=== PATIENT | male | born 1975 | race Caucasian/White ===

== ENCOUNTER 2024-07-02 14:12 | Outpatient (AMB) | payer MEDICARE, OTHER, SELFPAY ==
--- NOTE | 2024-07-02 14:21 | A.OFFVIS_ITS ---
Vital Signs 07/02/24 14:22 Weight 242 lb 15.19 oz BP 110/72 Blood Pressure Location Lt brachial Position Standing Pulse 79 Pulse Source Pulse Oximeter Intake Visit Reasons: Sarcoidosis//RECORDS RECEIVED Intake Note: Patient present today for Sarcoidosis office visit. High Man Required: No Accompanied by: Spouse Allergies No Known Allergies Allergy (Verified 07/02/24 14:26) HPI Comments Details: He had 2 incidents of swelling left dorsal hand lasting 1-2 weeks. Last episode occured last month then 6 months ago. Skin was yellow. Denies erythem, pain or warmth. He felt that his hand was tight. Self-limited. Left groin pain with walking. Intermittent. Self-limited. He has been experiencing pain in bilateral hips lateral sides. Last cortisone injection 02/2024. Left shoulder pain for years with limited abduction above 90 degrees. He has shooting pain that radiates from shoulder to deltoid when he abducts shoulder. He is going to PT for neck pain with c-spine impingement. PT at [facility] has given him shoulder exercises recently. [facility] Surgical History (Updated 07/02/24 @ 14:28 by LEE Rosa) History of hip surgery History of back surgery Family History (Updated 07/02/24 @ 14:29 by LEE Rosa) Mother No problems noted. Father No problems noted. Social History (Updated 07/02/24 @ 14:28 by LEE Rosa) Alcohol intake: never Patient Tobacco Use Status: Never used Tobacco Review of Systems Const All systems reviewed & are unremarkable except as noted in HPI and below Physical Exam Vital Signs: Last Vital Signs Pulse 79 07/02/24 14:22 BP 110/72 07/02/24 14:22 Const General: healthy appearing and comfortable Extrem Other: mild soft tissue swelling distal to left wrist on dorsal hand without discoloration or warmth. Slight tenderness on palpation DIPs tender. heberden's nodes present. No synovitis of small joints. Left shoulder is nontender. Pain with abduction of left shoulder above 100 degrees. Good internal and external rotations of shoulders. Right shoulder abduction 120 degrees without pain. Nontender groin region of left hip. Limited full external rotation of left hip. Trochanteric bursa tenderness was found. Office Procedures AMB Joint Injection/Aspiration Joint Injection/Aspiration Details: Bilateral trochanteric bursas Prep: site was prepped using aseptic technique Injected: 40 mg of, Kenalog, with 1 mL of and 1% plain lidocaine Procedure: The patient tolerated the procedure well Coding 42307 - Large joint Additional procedure code (CPT) needed (Modifier needed) Office Meds Kenalog 40 mg/mL suspension for injection Performing Provider: Sunil Hua MD Performing Location: [facility] Administered by: Sunil Hua MD on 07/02/24 15:37 Dose Route Admin Location Dispensed Lot Number Expiration Date [facility] [employer] 40 mg intrabursal right trochanteric bursa 1 mL [id number] [employer] 40 mg intrabursal left trochanteric bursa 1 mL lidocaine (PF) 10 mg/mL (1 %) injection solution Performing Provider: Sunil Hua MD Performing Location: [facility] Administered by: Sunil Hua MD on 07/02/24 15:37 Dose Route Admin Location Dispensed Lot Number Expiration Date [facility] [employer] 20 mg Infiltration 2 mL [id number] [facility] Assessment & Plan Assessment & Plan (1) Trochanteric bursitis of both hips: Comment: Uncontrolled pain. Code(s): M70.61 - Trochanteric bursitis, right hip; M70.62 - Trochanteric bursitis, left hip Category: Medical Plan: Bilateral trochanteric bursa injections were given (2) Hip pain, left: Comment: Intermittent groin pain. Code(s): M25.552 - Pain in left hip Category: Medical Plan: Will evaluate for hip joint pathology with x-ray. (3) Shoulder pain, left: Comment: Uncontrolled pain with shoulder abduction with limited full ROM. Code(s): M25.512 - Pain in left shoulder Category: Medical Plan: Continue PT exercises to improve ROM. Patient will call office if he needs formal PT orders for PSSP. Xray left shoulder ordered to evaluate for shoulder joint pathology (4) Left hand pain: Comment: 2 episodes of acute left dorsal hand swelling. Unclear etiology. Residual swelling present Code(s): M79.642 - Pain in left hand Category: Medical Plan: x-ray left hand ordered (5) Erosive osteoarthritis of both hands: Comment: Pain is uncontrolled in DIPs. He had x-ray bilateral hands ordered by his [facility] physicians that we reviewed on patient's phone. Discussed natural course of erosive OA and management Code(s): M15.4 - Erosive (osteo)arthritis Category: Medical Plan: He will try diclofenac gel 1% applied to affected region TID or QID for a month. If no improvement he will then try topical lidocaine OTC or capsaicin cream. encouraged continue hand exercises to maintain ROM Continue paraffin wax bath Orders: Orders XR hand LT 2V Today M15.4 - Erosive (osteo)arthritis, M79.642 - Pain in left hand XR hip LT min 2V Today M25.552 - Pain in left hip AMB Joint Injection/Aspiration Today M70.61 - Trochanteric bursitis, right hip, M70.62 - Trochanteric bursitis, left hip XR shoulder LT min 2V Today M25.512 - Pain in left shoulder Medications: New diclofenac sodium 1% (Arthritis Pain (diclofenac)) apply to hand includes palm/fingers/back of hand every 4-6 hours as needed 2 grams topical QID 100 grams 11RF M15.4 - Erosive (osteo)arthritis Coding Level of Care Code Est Pt Level 5 (44102) Complex EM visit Add On G2211 Diagnoses Trochanteric bursitis of both hips M70.61; M70.62 Hip pain, left M25.552 Shoulder pain, left M25.512 Left hand pain M79.642 Erosive osteoarthritis of both hands M15.4 CPT Codes Coding - 65856 Large joint: 15778 - Large joint ([id number]) Time Spent (min) 40
[2024-07-02 14:22] VITALS: BP 110/72; PULSE 79
== END 2024-07-02 15:32 | disposition home or self-care (01) ==
PROVIDERS: PCP Internal Medicine; Visit Provider Internal Medicine Rheumatology
DX: M70.61 Trochanteric bursitis, right hip (principal); M70.62 Trochanteric bursitis, left hip; M25.552 Pain in left hip; M25.512 Pain in left shoulder; M79.642 Pain in left hand; M15.4 Erosive (osteo)arthritis
CPT/HCPCS: 20610; 99214

== ENCOUNTER 2024-07-02 14:12 | Outpatient (REF) | payer MEDICARE, OTHER, SELFPAY ==
--- NOTE | ~2024-07-02 | XR_ITS ---
EXAMINATION: XR SHOULDER, LEFT. XR HAND, LEFT. XR HIP, LEFT. CLINICAL INFORMATION: Left shoulder and left hip pain. Dorsal wrist and hand swelling COMPARISON: None. TECHNIQUE: 4 views of the left shoulder. AP and frog-lateral views of the left hip. 3 views of the left hand. FINDINGS: Left shoulder: No acute fracture or malalignment. Supraspinatus calcific tendinitis. Mild acromioclavicular osteoarthritis. Left hip: 3 cannulated screws traverse a presumed healed femoral neck fracture. There is chronic remodeling/deformity of the femoral head with bony protuberance/osteophyte at the lateral femoral head and neck junction, superolateral joint space narrowing and small marginal osteophyte of the superior acetabular rim. No acute abnormality. 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 Narrowing of the remainder of the interphalangeal joints. No active erosion or suspicious soft tissue calcification. No acute fracture or malalignment. XR/XR hip LT min 2V IMPRESSION: LEFT SHOULDER: Supraspinatus calcific tendinitis. Mild acromioclavicular osteoarthritis. LEFT HIP: No acute abnormality. Chronic deformity of the left hip with mild degenerative changes as described. 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 No acute abnormality. Electronically signed by: Iftikhar Cunha MD 07/02/2024 06:31 PM [facility]
--- NOTE | ~2024-07-02 | XR_ITS ---
EXAMINATION: XR SHOULDER, LEFT. XR HAND, LEFT. XR HIP, LEFT. CLINICAL INFORMATION: Left shoulder and left hip pain. Dorsal wrist and hand swelling COMPARISON: None. TECHNIQUE: 4 views of the left shoulder. AP and frog-lateral views of the left hip. 3 views of the left hand. FINDINGS: Left shoulder: No acute fracture or malalignment. Supraspinatus calcific tendinitis. Mild acromioclavicular osteoarthritis. Left hip: 3 cannulated screws traverse a presumed healed femoral neck fracture. There is chronic remodeling/deformity of the femoral head with bony protuberance/osteophyte at the lateral femoral head and neck junction, superolateral joint space narrowing and small marginal osteophyte of the superior acetabular rim. No acute abnormality. 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 Narrowing of the remainder of the interphalangeal joints. No active erosion or suspicious soft tissue calcification. No acute fracture or malalignment. XR/XR hand LT 2V IMPRESSION: LEFT SHOULDER: Supraspinatus calcific tendinitis. Mild acromioclavicular osteoarthritis. LEFT HIP: No acute abnormality. Chronic deformity of the left hip with mild degenerative changes as described. 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 No acute abnormality. Electronically signed by: Iftikhar Cunha MD 07/02/2024 06:31 PM [facility]
--- NOTE | ~2024-07-02 | XR_ITS ---
EXAMINATION: XR SHOULDER, LEFT. XR HAND, LEFT. XR HIP, LEFT. CLINICAL INFORMATION: Left shoulder and left hip pain. Dorsal wrist and hand swelling COMPARISON: None. TECHNIQUE: 4 views of the left shoulder. AP and frog-lateral views of the left hip. 3 views of the left hand. FINDINGS: Left shoulder: No acute fracture or malalignment. Supraspinatus calcific tendinitis. Mild acromioclavicular osteoarthritis. Left hip: 3 cannulated screws traverse a presumed healed femoral neck fracture. There is chronic remodeling/deformity of the femoral head with bony protuberance/osteophyte at the lateral femoral head and neck junction, superolateral joint space narrowing and small marginal osteophyte of the superior acetabular rim. No acute abnormality. 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 Narrowing of the remainder of the interphalangeal joints. No active erosion or suspicious soft tissue calcification. No acute fracture or malalignment. XR/XR shoulder LT min 2V IMPRESSION: LEFT SHOULDER: Supraspinatus calcific tendinitis. Mild acromioclavicular osteoarthritis. LEFT HIP: No acute abnormality. Chronic deformity of the left hip with mild degenerative changes as described. 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 No acute abnormality. Electronically signed by: Iftikhar Cunha MD 07/02/2024 06:31 PM [facility]
== END 2024-07-02 14:13 | disposition home or self-care (01) ==
LOC: HO.XRAY 14:12
PROVIDERS: PCP Internal Medicine; Visit Provider Internal Medicine Rheumatology
DX: M15.4 Erosive (osteo)arthritis (principal); M79.642 Pain in left hand; M25.552 Pain in left hip; M25.512 Pain in left shoulder; M70.61 Trochanteric bursitis, right hip; M70.62 Trochanteric bursitis, left hip
CPT/HCPCS: 20610; 73030; 73120; 73502; 99212; J2003; J3300

== ENCOUNTER 2024-10-01 13:02 | Outpatient (AMB) | payer MEDICARE, OTHER, SELFPAY ==
--- OUTSIDE RECORDS SUMMARY | 2024-10-01 13:10 | XMS_ITS | Continuity of Care Document ---
Author Organization [facility] Address [address] [place] [id number]- Care Team Providers Care Pin Setter Name Role Phone Kate HARVEY, Lashonda Primary Care Physician Encounter [facility] Date(s): 08/05/24 - 09/04/24 [facility] [address] [place] [id number]- Encounter Type: Triage Allergies, Adverse Reactions, Alerts Substance Criticality Severity Reaction Reaction Severity Status Adhesive Bandage paper thin sensitive skin Active Immunizations Given and Recorded Vaccine Date Status Refusal Reason influenza virus vaccine, inactivated 04/08/24 Marty rded influenza virus vaccine, inactivated 04/07/23 Marty rded influenza virus vaccine, inactivated 05/19/22 Marty rded influenza virus vaccine, inactivated 04/16/21 Marty rded influenza virus vaccine, inactivated 06/11/19 Marty rded influenza virus vaccine, inactivated 1 06/09/18 Gi tray influenza virus vaccine, inactivated 05/31/17 Marty rded influenza virus vaccine, inactivated 2 06/10/16 Gi tray influenza virus vaccine, inactivated 07/13/15 Give n influenza virus vaccine, inactivated 06/08/14 Give n influenza virus vaccine, inactivated 05/26/10 Give n influenza virus vaccine, inactivated 07/24/07 Give n tetanus/diphtheria/pertussis, acel(Tdap) 3 03/24/24 Given tetanus/diphtheria/pertussis, acel(Tdap) 05/18/11 Given SARS-CoV-2 (COVID-19) mRNA BNT-162b2 vac 08/17/21 Recorded SARS-CoV-2 (COVID-19) mRNA BNT-162b2 vac 11/18/20 Recorded SARS-CoV-2 (COVID-19) mRNA BNT-162b2 vac 10/26/20 Recorded Influenza Virus Vaccine (oldterm) 05/01/20 Recorde d pneumococcal 23-valent vaccine 07/13/15 Given Influenza Vaccine (oldterm) 06/15/09 Given 1Result Comment: [06/09/2018] 74207-329-34 2Admin Note: [facility] 3Result Comment: [facility] [id number] Medications Ativan 1 mg oral tablet 1 tablet = 1 mg, By Mouth, Daily at bedtime, PRN as needed for anxiety, cottage master checked, # 28 tablet, 0Refills, Maintenance, 03/25/24 4:38:00 PM EDT, Tablet, [facility]/pharmacy #[id number], 183, cm, 03/24/24 15:46:00EDT, Height, 109.2, kg, 03/20/24 10:08:00 EDT, Dry Weight Start Date: 03/25/24 Status: Ordered Quantity: 28.0 Unit: tablet Repeat number: 1 atorvastatin 20 mg oral tablet 1 tablet, By Mouth, Daily, # 90 tablet, 1 Refills, Maintenance, 08/24/24 1:22:00 PM EST, [id number], 183, cm, 08/07/24 18:58:00 EST, Height, 110.2, kg, 08/07/24 10:15:00 EST, Dry Weight Start Date: 08/24/24 Status: Ordered Quantity: 90.0 Unit: tablet Repeat number: 1 Canasa Pac 1000 mg rectal suppository 1 supp = 1,000 mg, Rectally, Daily at bedtime, 0 Refills, Maintenance, 04/06/16 1:04:48 PM EDT Start Date: 04/06/16 Status: Ordered Repeat number: 1 folic acid 1 mg oral tablet 1, tablet, By Mouth, Daily, # 90 tablet, Refills 11, Tot. Refills 11, Maintenance, 12/09/23 9:51:00 AM EDT, Route to Pharmacy Electronically, [facility]/pharmacy #[id number], 183, cm, 11/28/23 8:35:00 EDT, Height,107.5, kg, 11/29/23 11:09:00 EDT, Dry Weight Start Date: 12/09/23 Status: Ordered Quantity: 90.0 Unit: tablet Repeat number: 12 ipratropium nasal 21 mcg/inh spray See Instructions, USE 1 SPRAY IN BOTH NOSTRILS DAILY AT BEDTIME,CAN BE USED UP TO 3 TIMES PER DAY IF NEEDED, # 90 Unknown, 5 Refills, Maintenance, 03/19/24 10:16:00 AM EDT, [facility]/pharmacy #[id number], 90, USE 1 SPRAY IN BOTH NOSTRILS DAILY AT BEDTIME,CAN BE USED UP TO 3 TIMES PER DAY IF NEEDED, 183, cm, 02/21/24 17:54:00 EDT, Height, 108.1, kg, 02/21/24 16:19:00 EDT, Dry Weight Start Date: 03/19/24 Status: Ordered Quantity: 90.0 Unit: Unknown Repeat number: 6 lidocaine 0.5% topical gel 1 application, Topically, 3 times a day, # 120 Gm, 0 Refills, Maintenance, 07/29/24 4:10:00 PM EST,Gel, Partial fill upon patient request if the prescription is for a schedule II opioid drug. Start Date: 07/29/24 Status: Ordered Quantity: 120.0 Unit: g Repeat number: 1 methotrexate 2.5 mg oral tablet TAKE 8 TABLETS BY MOUTH ONE TIME PER WEEK Start Date: 07/22/20 Status: Ordered Repeat number: 1 metoclopramide 10 mg oral tablet, disintegrating 1 tablet = 10 mg, By Mouth, 3 times a day, PRN Headache, # 90 tablet, 0 Refills, Maintenance, 12/29/21 1:49:00 PM EDT, DIS Tablet, Partial fill upon patient request if the prescription is for a schedule II opioid drug. Start Date: 12/29/21 Status: Ordered Quantity: 90.0 Unit: tablet Repeat number: 1 Metoprolol Succinate ER 25 mg oral tablet, extended release 1 tablet, By Mouth, Daily, # 90 tablet, 1 Refills, Maintenance, 04/29/24 10:47:00 AM EDT, [facility]/pharmacy #[id number], 183, cm, 04/17/24 15:06:00 EDT, Height, 108.5, kg, 04/17/24 10:21:00 EDT, Dry Weight Start Date: 04/29/24 Status: Ordered Quantity: 90.0 Unit: tablet Repeat number: 2 modafinil 200 mg oral tablet 2 tablet = 400 mg, By Mouth, Daily in AM, # 30 tablet, 0 Refills, Maintenance, 03/22/23 2:27:00 PM EDT, Tablet, Partial fill upon patient request if the prescription is for a schedule II opioid drug. Start Date: 03/22/23 Status: Ordered Quantity: 30.0 Unit: tablet Repeat number: 1 Renflexis 100 mg intravenous injection = 500 mg, IV Infusion, Every 28 days, # 5 each, 11 Refills, Maintenance, 04/13/24 5:31:00 PM EDT, dx: sarcoid D86. 0 Start Date: 04/13/24 Status: Ordered Quantity: 5.0 Unit: each Repeat number: 12 SUMAtriptan 50 mg oral tablet 2 tablet = 100 mg, By Mouth, Once, PRN Pain , Mild, TAKE 1 TABLET BY MOUTH EVERY 2 HOURS NEEDED FOR MIGRAINE (NO MORE THAN 4 A WEEK) Start Date: 07/22/20 Status: Ordered Repeat number: 1 tiZANidine 2 mg oral tablet 2 mg, 1, tablet, By Mouth, Every 8 hours, PRN, # 42 tablet, Refills 0, Tot. Refills 0, Maintenance,as needed for muscle spasm, 12/12/23 12:59:00 PM EDT, Route to Pharmacy Electronically, [facility], Partial fill upon patient request if the prescription is for a schedule II opioid drug., 180.34, cm, 12/12/23 9:11:00 EDT, Height, 108, kg, 12/12/23 9:11:00 EDT, Dry Weight Start Date: 12/12/23 Stop Date: 12/26/23 Status: Ordered Quantity: 42.0 Unit: tablet Repeat number: 1 Tylenol 8 HR Arthritis Pain 650 mg oral tablet, extended release 2 tablet = 1,300 mg, By Mouth, Every 8 hours, 0 Refills, Maintenance, 07/29/24 4:24:00 PM EST, Partial fill upon patient request if the prescription is for a schedule II opioid drug. Start Date: 07/29/24 Status: Ordered Repeat number: 1 venlafaxine 37.5 mg oral capsule, extended release 37.5 mg, 1, capsule, By Mouth, Daily, add to Venlafaxine 75 mg, # 90 capsule, Refills 2, Tot. Refills 2, Maintenance, 03/24/24 4:17:00 PM EDT, Route to Pharmacy Electronically, [facility]/pharmacy #[id number], Partial fill upon patient request if the prescription is for a schedule II opioid drug., 183, cm, 03/24/24 15:46:00 EDT, Height, 109.2, kg, 03/20/24 10:08:00 EDT, Dry Weight Start Date: 03/24/24 Status: Ordered Quantity: 90.0 Unit: capsule Repeat number: 3 Indication: Major depressive disorder, single episode, moderate venlafaxine 75 mg oral capsule, extended release 1 capsule, By Mouth, Daily, add to Venlafaxine 37.5 mg, # 90 capsule, 2 Refills, Maintenance, 03/24/24 4:17:00 PM EDT, [facility]/pharmacy #[id number], 183, cm, 03/24/24 15:46:00 EDT, Height, 109.2, kg, 03/20/24 10:08:00 EDT, Dry Weight Start Date: 03/24/24 Status: Ordered Quantity: 90.0 Unit: capsule Repeat number: 3 Viagra 100 mg oral tablet 1 tablet = 100 mg, By Mouth, Daily, PRN as needed for erectile dysfunction, # 30 tablet, 5 Refills,Maintenance, 09/04/23 12:18:00 PM EST, Tablet, [facility]/pharmacy #[id number], Partial fill upon patient requestif the prescription is for a schedule II opioid drug., 180.1, cm, 09/04/23 11:32:00 EST, Height, 102, kg, 08/09/23 11:18:00 EST, Dry Weight Start Date: 09/04/23 Status: Ordered Quantity: 30.0 Unit: tablet Repeat number: 6 Indication: Male erectile dysfunction, unspecified Vitamin D2 50,000 intl units (1.25 mg) oral capsule 1 capsule = 50,000 International_Units, By Mouth, Every week, # 12 capsule, 0 Refills, Maintenance,05/22/24 4:53:00 PM EDT, Capsule, [facility]/pharmacy #[id number], Partial fill upon patient request if the prescription is for a schedule II opioid drug., 183, cm, 04/17/24 15:06:00 EDT, Height, 107.4, kg, 05/15/24 10:58:00 EDT, Dry Weight Start Date: 05/22/24 Status: Ordered Quantity: 12.0 Unit: capsule Repeat number: 1 Problem List Condition Confirmation Course Effective Dates Status Health Status Informant Anxiety disorder Confirmed Active Degenerative arthritis of cervical spine Confirmed Active Ulcerative proctitis Confirmed Active Erosive (osteo)arthritis Confirmed Active Hypercholesterolemia Confirmed Active Hyperhidrosis of axilla Confirmed Active HTN (hypertension) Confirmed Active Interstitial lung disease Confirmed Active Lumbar radiculopathy Confirmed Active Migraines Confirmed Active Depression Confirmed Active Obese class I Confirmed Active EDDI (obstructive sleep apnea) Confirmed Active Osteoarthritis of multiple joints Confirmed Active Post-nasal drip Confirmed Active Restless legs Confirmed Active Sarcoidosis Confirmed Active Social History Social History Type Response Smoking Status Never (less than 100 in lifetime) entered on: 11/28/23 Sex Sex Representation Male (finding) Patient Care team information Care Team Personnel Name: Marah Reyes RN [facility] RN Member Role: Primary Care Nurse Name: Lashonda Love MD Position[facility] Physician - Primary Care Member Role: PCP Address: [address] [place] [id number] Telecom: Name: Gala Pat RN [facility] AMB Nurse Member Role: Primary Care Nurse Name: Paco Carlos RN [facility] RN Member Role: Primary Care Nurse Name: Deana Garcia Position[facility] Rad Management Member Role: Primary Care Nurse Care Team Related Persons Name: CHELLE ORTIZ Insurance Providers Guarantor name: AISHA ORTIZ Health Plan Information #: 1 Payer: MEDICARE PART B OUTPT Member Number: NA Policy Number: NA Group Number: NA Health Plan Information #: 2 Payer: [facility] SHAR[facility] SV Member Number: NA Policy Number: NA Group Number: NA
--- OUTSIDE RECORDS SUMMARY | 2024-10-01 13:10 | XMS_ITS | Clinical Summary ---
Author Organization [facility] [address] [facility] Address [address] [place] [address] Phone Care Team Providers Care Transformation Coach Name Role Phone Lashonda Love MD Primary Care Provider Social History Tobacco Use Types Packs/Day Years Used Date Smoking Tobacco: Never Assessed Sex and Gender Information Value Date Recorded Sex Assigned at Not on file Legal Sex Male 10:40 AM EST Gender Identity Not on file Sexual Orientation Not on file Plan of Treatment Upcoming Encounters Date Type Department Care Team (Late st Contact Info) Description 11/13/2024 2:40 PM EDT Office Visit Gastroenterology - [address] [phone] Jhonny Vicente MD [address] [address] Health Maintenance Due Date Last Done Comments DTaP,Tdap,and Td Vaccines (1 - Tdap) 1996 Hepatitis B Vaccines (1 of 3 - 19+ 3-dose series) 1996 COVID-19 Vaccine ( - 2023-2 5 season) 2024 Influenza Vaccine (#1) 2024 Cholesterol Screening (Lipid Panel) 09/17/2024 Colorectal Cancer Screening: Colonoscopy 09/17/2024 Depression Screening 09/17/2024 HIV Screening 09/17/2024 Hepatitis C Screening 09/17/2024 Medicare Annual Wellness Visit 09/17/2024 Social Influencers of Health Screening 09/17/2024 HIB Vaccines Aged Out No longer eligi ble based on patient's age to complete this topic HPV Vaccines Aged Out No longer eligi ble based on patient's age to complete this topic Hepatitis A Vaccines Aged Out No long er eligible based on patient's age to complete this topic IPV Vaccines Aged Out No longer eligi ble based on patient's age to complete this topic MMR Vaccines Aged Out No longer eligi ble based on patient's age to complete this topic Meningococcal ACWY Vaccine Aged Out N o longer eligible based on patient's age to complete this topic Meningococcal B Vacine Aged Out No lo nger eligible based on patient's age to complete this topic Pneumococcal Vaccine: Pediat rics (0 to 5 Years) and At-Risk Patients (6 to 64 Years) Aged Out No longer eligible b ased on patient's age to complete this topic RSV Immunization Patients Un bert 20 months Aged Out No longer eligible b ased on patient's age to complete this topic Varicella Vaccines Aged Out No longer eligible based on patient's age to complete this topic Insurance [facility] MEDICARE Care Teams Transformation Coach Relationship Specialty Start Date End Date Lashonda Love MD [address] [place] [phone] PCP - General Internal Medicine 09/17/24
--- OUTSIDE RECORDS SUMMARY | 2024-10-01 13:10 | XMS_ITS | Continuity of Care Document ---
Author Organization [facility] Adult Address [address] [place] [id number]- Care Team Providers Care Clinical Psychologist Private Practice Name Role Phone Kate HARVEY, Lashonda Primary Care Physician Encounter [facility] Date(s): 08/24/24 - 09/23/[address] [address]- Encounter Type: Triage Allergies, Adverse Reactions, Alerts [...] Vaccine (oldterm) 06/15/09 Given 1Result Comment: [06/09/2018] [id number] 2Admin Note: [facility] 3Result Comment: [facility] [id number] Problem List Condition Confirmation Course Effective Dates Status Health Status Informant Anxiety disorder Confirmed Active Degenerative arthritis of cervical spine Confirmed Active Ulcerative proctitis Confirmed Active ED (erectile dysfunction) Confirmed Active Erosive (osteo)arthritis Confirmed Active Hypercholesterolemia Confirmed Active Hyperhidrosis of axilla Confirmed Active HTN (hypertension) Confirmed Active Mild cognitive impairment Confirmed Active Interstitial lung disease Confirmed Active Lumbar radiculopathy Confirmed Active Migraines Confirmed Active Depression Confirmed Active Obese class I Confirmed Active EDDI (obstructive sleep apnea) Confirmed Active Osteoarthritis of multiple joints Confirmed Active Post-nasal drip Confirmed Active Restless legs Confirmed Active Sarcoidosis Confirmed Active Social History Social History Type Response Smoking Status Former smoker, quit more than 30 days ago; Type: Cigarettes; Number of years: 10; entered on: 07/22/20 Sex Sex Representation Male (finding) Patient Care team information Care Team Personnel Name: Marah Reyes RN Position: [facility] RN Member Role: Primary Care Nurse Name: Lashonda Love MD Position: [facility] Physician - Primary Care Member Role: PCP Address: [address] [place] [address] Telecom: Name: Gala Pat RN Position: [facility] AMB Nurse Member Role: Primary Care Nurse Name: Paco Carlos RN Position: [facility] RN Member Role: Primary Care Nurse Name: Deana Garcia Position: [facility] Rad Management Member Role: Primary Care Nurse Care Team Related Persons Name: CHELLE ORTIZ Insurance Providers Guarantor name: AISHA LACIJIMBO Health Plan Information #: 1 Payer: MEDICARE PART B OUTPT Member Number: NA Policy Number: NA Group Number: NA Health Plan Information #: 2 Payer: [facility] Member Number: NA Policy Number: NA Group Number: NA
--- OUTSIDE RECORDS SUMMARY | 2024-10-01 13:10 | XMS_ITS | Continuity of Care Document ---
Author Organization [facility] Address [address] [place] [address]- Care Team Providers Care Instructional Support Specialist Name Role Phone Kate HARVEY, Lashonda Primary Care Physician Encounter [facility] Date(s): 09/16/24 - 09/23/[address] [address]- Encounter Diagnosis Well adult exam(Discharge Diagnosis) - 09/16/24 Ulcerative proctitis(Discharge Diagnosis) - 09/16/24 Interstitial lung disease(Discharge Diagnosis) - 09/16/24 Depression(Discharge Diagnosis) - 09/16/24 HTN (hypertension)(Discharge Diagnosis) - 09/16/24 Hypercholesterolemia(Discharge Diagnosis) - 09/16/24 EDDI (obstructive sleep apnea)(Discharge Diagnosis) - 09/16/24 Obese class I(Discharge Diagnosis) - 09/16/24 Mild cognitive impairment(Discharge Diagnosis) - 09/16/24 Anxiety disorder(Discharge Diagnosis) - 09/16/24 ED (erectile dysfunction)(Discharge Diagnosis) - 09/16/24 Attending Physician: Lashonda Love MD Encounter Type: Office Visit Allergies, Adverse Reactions, Alerts Substance Criticality Severity [...] Vaccine (oldterm) 06/15/09 Given 1Result Comment: [06/09/2018] [id number] 2Admin Note: [facility] clinic 3Result Comment: [facility] [id number] Problem List Condition Confirmation Course Effective Dates [...] Restless legs Confirmed Active Sarcoidosis Confirmed Active Diagnosis Diagnosis Type Effective Dates Health Status Clinical Service Informant Well adult exam Discharge Diagnosis 09/16/24 Ulcerative proctitis Discharge Diagnosis 09/16/24 Interstitial lung disease Discharge Diagnosis 09/16/24 Depression Discharge Diagnosis 09/16/24 HTN (hypertension) Discharge Diagnosis 09/16/24 Hypercholesterolemia Discharge Diagnosis 09/16/24 EDDI (obstructive sleep apnea) Discharge Diagnosis 09/16/24 Obese class I Discharge Diagnosis 09/16/24 Mild cognitive impairment Discharge Diagnosis 09/16/24 Anxiety disorder Discharge Diagnosis 09/16/24 ED (erectile dysfunction) Discharge Diagnosis 09/16/24 Vital Signs Most recent to oldest [Reference Range]: 1 Height 179.3 cm (09/16/24 2:52 PM) Weight 102.4 kg (09/16/24 2:52 PM) Oxygen Saturation [94-100 %] 98 % (09/16/24 2:52 PM) Pulse Rate [55-90 bpm] 80 bpm (09/16/24 2:52 PM) Body Mass Index [18.5-24.99 kg/m2] 31.85 kg/m2 *>HHI* (09/16/24 2:52 PM) Blood Pressure [90-138/55-84 mm Hg] 110/ 77mm Hg (09/16/24 2:52 PM) Mode of Delivery (Oxygen) Room air (09/16/24 2:52 PM) Blood pressure sites Arm, right (09/16/24 2:52 PM) Social History Social History Type Response Smoking Status Former smoker, quit more than 30 days ago; Type: Cigarettes; Number of years: 10; entered on: 07/22/20 Sex Sex Representation Male (finding) Note * Jessica Avila: PERFORM Event Display: Patient Education/Instruction Authored Date: [id number] Ambulatory Adult Visit Summary [place] [address] Name: AISHA ORTIZ : 1975?? Visit: 09/16/2024 14:49?? Ambulatory Visit Instructions ?? Your Care Team Primary Care Provider Lashonda Love MD? This Visit Provider Lashonda Love MD Your Diagnosis Well adult exam Ulcerative proctitis Interstitial lung disease Depression HTN (hypertension) Hypercholesterolemia EDDI (obstructive sleep apnea) Obese class I Mild cognitive impairment Anxiety disorder Vitals Signs Pulse Rate: 80 bpm Height: 179.3 cm Systolic Blood Pressure: 110 mm Hg Weight: 102.4 kg Diastolic Blood Pressure: 77 mm Hg Body Mass Index:??31.85 kg/m2??Critical Oxygen Saturation: 98 % Body surface area: 2.26 What to do next Follow-Up Appointments Follow Up with??Lashonda Love MD When:??10/15/2025 01:10 PM EST Why: [facility] Where: [address] [place] [address]- Follow Up with??Lashonda Love MD When:??03/24/2025 03:30 PM EDT Why: RET Where: [address] [place] [address]- Future Orders CBC - Routine, Once, 09/16/24 15:18:00 EST, Order for Today, [facility], Blood?? Lipid Panel Non Fasting - Routine, Once, 09/16/24 15:18:00 EST, Order for Today, [facility], Blood?? Comprehensive Metabolic Panel - Routine, Once, 09/16/24 15:18:00 EST, Order for Today, [facility], Blood?? Vitamin D 25 Hydroxy Level - Routine, Once, 09/16/24 15:19:00 EST, Order for Today, [facility], Blood?? Direct LDL - Routine, Once, 09/16/24 15:20:00 EST, Order for Today, [facility], Blood?? Medications The list below reflects the information in our records and provided by you today along with any changes made during this visit. Please continue your medications until treatment is completed or stopped by your provider. If this is different from the information you have or there are other questions,please contact the prescribing provider. What How Much When Why Instructions Changed Venlafaxine (venlafaxine 150 mg oral capsule, extended release) 1 capsule Oral Daily Depression Anxiety disorder Pickup at [facility]/pharmacy #[id number] Unchanged Acetaminophen (Tylenol 8 HR Arthritis Pain 650 mg oral tablet, extended release) 2 tab(s) Oral Every 8 hours Unchanged Atorvastatin (atorvastatin 20 mg oral tablet) 1 tab(s) Oral Daily Unchanged Folic Acid (folic acid 1 mg oral tablet) 1 tab(s) Oral Daily Unchanged Infliximab (Renflexis 100 mg intravenous injection) 500 Milligram Intravenous Infusion Every 28 days Duration: 99 doses/times Unchanged Ipratropium Nasal (ipratropium nasal 21 mcg/ inh spray) See instructions USE 1 SPRAY IN BOTH NOSTRILS DAILY AT BEDTIME,CAN BE USED UP TO 3 TIMES PER DAY IF NEEDED ?? Unchanged Lidocaine Topical (lidocaine 0.5% topical gel) 1 paulina Topically 3 times a day Unchanged Lorazepam (Ativan 1 mg oral tablet) 1 tab(s) Oral Daily at Bedtime as needed for as needed for anxiety community action worker checked ?? Unchanged Mesalamine (Canasa Pac 1000 mg rectal suppository) 1 suppository(ies) Per rectum Daily at Bedtime Unchanged Methotrexate (methotrexate 2.5 mg oral tablet) TAKE 8 TABLETS BY MOUTH ONE TIME PER WEEK ?? Unchanged Metoclopramide (metoclopramide 10 mg oral tablet, disintegrating) 1 tab(s) Oral 3 times a day as needed for Headache Unchanged Metoprolol (Metoprolol Succinate ER 25 mg oral tablet, extended release) 1 tab(s) Oral Daily Unchanged Modafinil (modafinil 200 mg oral tablet) 2 tab(s) Oral Daily in the morning Unchanged Sumatriptan (SUMAtriptan 50 mg oral tablet) 2 tab(s) Oral Once as needed for Pain , Mild TAKE 1 TABLET BY MOUTH EVERY 2 HOURS NEEDED FOR MIGRAINE (NO MORE THAN 4 A WEEK) ?? Unchanged Tizanidine (tiZANidine 2 mg oral tablet) 1 tab(s) Oral Every 8 hours as needed for as needed for muscle spasm Duration: 14 Days Pharmacy Information [facility]/pharmacy #[id number]: [address], [place] [id number] [phone] ?? What How Much When Why Comments Stop Taking Ergocalciferol (Vitamin D2 50,000 intl units (1.25 mg) oral capsule) 1 capsule Oral Every week Stop Taking Sildenafil (Viagra 100 mg oral tablet) 1 tab(s) Oral Daily as needed for as needed for erectile dysfunction ED (erectile dysfunction) Test Performed Below is a partial list of the tests performed during your Visit. You may have had other tests and procedures not included in this list. Please discuss all test results with your provider. CBC?-- Results Pending -- Comprehensive Metabolic Panel?-- Results Pending -- Direct LDL?-- Results Pending -- Lipid Panel Non Fasting?-- Results Pending -- Vitamin D 25 Hydroxy Level?-- Results Pending -- Medications and Immunizations Administered Medications Given During Visit No medications given during this visit.?? Allergies (NKA means No Known Allergies) Adhesive Bandage??(paper thin, sensitive skin) Education Materials Below is the list of Educational Leaflet Providered with your Visit summary. [employer] Patient Education - Health Screening??Guidelines,??Men Ages 40 to 49?? Common Emergency Awareness Tips IS IT A STROKE? Act FAST and Check for these signs: FACE Does the face look uneven? ARM Does one arm drift down? SPEECH Does their speech sound strange? TIME Call at any sign of stroke ?? Heart Attack Signs Chest discomfort: Most heart attacks involve discomfort in the center of the chest and lasts more than a few minutes, or goes away and comes back. It can feel like uncomfortable pressure, squeezing, fullness or pain. Discomfort in upper body: Symptoms can include pain or discomfort in one or both arms, back, neck, jaw or stomach. Shortness of breath: With or without discomfort. Other signs: Breaking out in a cold sweat, nausea, or lightheaded. Remember, MINUTES DO MATTER. If you experience any of these heart attack warning signs, call to get immediate medical attention! ?? Smoking can increase your chances of developing chronic health problems and can cause harmful effects to other family members in your house. If you smoke, you are strongly encouraged to quit. Please call [employer] Link at [phone] or [phone] ([phone]) or log in to [email or web address] for referrals to smoking cessation programs. ?? The National Suicide Prevention Hotline is available 11/03 if you or someone you know needs to find a reason to keep living. By calling 3-666-712-MakuCell (1638) you'll be connected to a skilled, trained counselor at a crisis center in your area. [facility] [employer] Portal You can view and manage your care through the patient portal or by using a health care paulina of your choosing. [employer] is a website that allows you to securely view your medical information including your hospital discharge summary, office visit summaries, medications and follow-up visits. You can also request appointments, renew medications, and request access to your medical information using a health care paulina of your choosing, or just ask a question. You can enroll at [email or web address] or register during your next office visit. [facility], in keeping with [facility] guidance, no longer requires face masks for staff, patientsor visitors in most situations. Similiar to time spent indoors at other locations, there is the chance that you were exposed to repiratory viruses during your time with us (such as flu or COVID-19). If you develop symptoms concerning for a viral respiratory infection, please seek testing (and treatment if indicated) from your medical provider or home test kit. ?? Disclaimer: The information provided is of a general nature and is intended to be used in conjunction with the recommendations and advice of your health care practitioner. Every effort has been made to ensure that the information provided is accurate and complete at the time it is provided to you however, as your needs change, or, as new information becomes available, different or additional instructions may be required. ?? If you have questions, please consult with your primary care provider or pharmacist, as appropriate. This information is not intended to serve as substitution for assessment and evaluation by a qualified health care provider. If you do not have a primary care provider, you may find a [facility] provider by calling [facility] Link at [phone]. * Kate HARVEY, Lashonda: PERFORM Event Display: Patient Education Leaflets Authored Date: Health Screening??Guidelines,??Men Ages 40 to 49 ?? [address] Health Screening??Guidelines,??Men Ages 40 to 49 Screening tests and health counseling are a farrar part of managing your health. A screening test is done to find disorders or diseases in people who don't have any symptoms. Screening tests are not used to diagnose. They are used to find out if more testing is needed. The goal may be to find a disease early so it can be treated with more success. Or the goal may be to find a disease early so you can make lifestyle changes. You may need regular checkups to help you reduce your risk of disease. Below are guidelines for men ages 40 to 49. Talk with your healthcare provider. Make sure you???re up-to-date on what you need. We understand gender is a spectrum. We may use gendered terms to talk about anatomy and health risk. Please use this information in a way that works best for you and your healthcare provider as you talk about your care. Screening Who needs it How often Alcohol misuse All men in this age group At routine exams Blood pressure All men in this age group Once a year if your blood pressure is normal. Normal blood pressure is less than 120/80 mm Hg. If your blood pressure is higher than this, follow the advice of your healthcare provider. Depression All men in this age group At routine exams Type 2 diabetes or prediabetes All men ages 35 to 70 with no symptoms who are overweight or obese. At least every 3 years (yearly if blood sugar has begun to rise) BMI (body mass index) All men in this age group Every year, to help find out if you are at a healthy weight for your height Type 2 diabetes All men with prediabetes Every year Hepatitis C All adults ages 18 and older at least once in a lifetime. Talk with your healthcare provider about your risk factors and how often to have hepatitis C screening. High cholesterol or triglycerides All men in this age group At least every 5 years; or at least every 1 to 2 years for men ages 45 to 65. Expert groups vary intheir advice. Talk with your healthcare provider about your risk and how often you should be tested. HIV All men in this age group At routine exams Obesity All men in this age group At routine exams Prostate cancer Starting at age 45, talk with your healthcare provider about the risks and benefits of these: ??? A digital rectal exam ??? Prostate-specific antigen screening At routine exams Colorectal cancer Men age 45 and older at average risk Talk with your healthcare provider about which test below is right for you: ??? Colonoscopy every 10 years ??? Flexible sigmoidoscopy every 5 years or every 10 with yearly fecal immunochemical test (FIT) stool test ??? CT colonography (virtual colonoscopy) every 5 years ??? Yearly fecal occult blood test ??? Yearly FIT ??? FIT-DNA test (also referred to as stool DNA test) every 3 years If you have a test that is not a colonoscopy and have an abnormal test result, you will need a colonoscopy. You may need to be screened more or less often. This is based on personal or family health history.Talk with your healthcare provider. Syphilis Men who are at higher risk for infection. Talk with your healthcare provider. At routine exams Tuberculosis Men who are at higher risk for infection. Talk with your healthcare provider. Talk with your healthcare provider Vision All men in this age group Baseline screening at age 40. Talk with your healthcare provider about how often to have vision exams. Health counseling Who needs it How often Diet and exercise Men??who are overweight or obese When diagnosed, and then at routine exams Sexually transmitted infection prevention Men who are at higher risk of infection. Talk with your healthcare provider. At routine exams Use of tobacco and health effects it can cause All men in this age group Every exam Last Reviewed Date: 2024 ?? [id number] The [employer]. All rights reserved. This information is not intended as a substitute for professional medical care. Always follow your healthcare professional's instructions. ?? Patient Care team information Care Team Personnel Name: Marah Reyes RN Position: [facility] RN Member Role: Primary Care Nurse Name: Lashonda Love MD Position: [facility] Physician - Primary Care Member Role: PCP Address: [address] [place] [id number] Telecom: Name: Gala Pat RN Position: [facility] AMB Nurse Member Role: Primary Care Nurse Name: Paco Carlos RN Position: [facility] RN Member Role: Primary Care Nurse Name: Deana Garcia Position: [facility] Rad Management Member Role: Primary Care Nurse Care Team Related Persons Name: CHELLE ORTIZ Insurance Providers Guarantor name: AISHA ORTIZ Health Plan Information #: 1 Payer: MEDICARE PART B OUTPT Member Number: [id number] Policy Number: NA Group Number: NA Health Plan Information #: 2 Payer: [facility] Member Number: [id number] Policy Number: NA Group Number: [id number]
[2024-10-01 13:12] VITALS: BP 116/80; PULSE 80; O2SAT 98; BMI 31.1
--- NOTE | 2024-10-01 13:12 | A.OFFVIS_ITS ---
Vital Signs 10/01/24 13:12 Height 5 ft 10.5 in Weight 220 lb 2 oz BMI 31.1 BP 116/80 Blood Pressure Location Rt brachial Position Sitting Pulse 80 Pulse Source Pulse Oximeter Pulse Oximetry (%) 98 Oxygen Delivery Method Room Air Intake Visit Reasons: 10/01/2024 13:00 Intake Note: Patient present follow up patient stated has had few falls Allergies No Known Allergies Allergy (Verified 10/01/24 13:14) HPI HPI 10/01/2024 13:00: Details: He has noticed nodule formation in left 4th finger and toes. Pain in DIPs is uncontrolled. Left hip pain is keeping him up at night. [facility] Surgical History History of hip surgery History of back surgery Family History Mother No problems noted. Father No problems noted. Social History Alcohol intake: never Patient Tobacco Use Status: Never used Tobacco Review of Systems Const All systems reviewed & are unremarkable except as noted in HPI and below Physical Exam Vital Signs: Last Vital Signs Pulse 80 10/01/24 13:12 BP 116/80 10/01/24 13:12 Pulse Ox 98 10/01/24 13:12 Oxygen Delivery Method Room Air 10/01/24 13:12 BMI result Body Mass Index 31.1 Const Other: General: Comfortable CVS: RRR Respiratory: clear to auscultation bilaterally. Good respiratory effort Skin: No lesions seen MSK:haberden's node are present on multiple DIPs with tenderness on palpation. No synovitis. R 3rd-4th hammertoes present. Left trochanteric bursa tenderness found. Office Procedures AMB Joint Injection/Aspiration Coding 75692 - Large joint Procedure code (CPT) selection complete Office Meds lidocaine (PF) 10 mg/mL (1 %) injection solution Performing Provider: Sunil Hua MD Performing Location: [facility] Rheumatology-[facility] Administered by: Sunil Hua MD on 10/01/24 21:47 Dose Route Admin Location Dispensed Lot Number Expiration Date [facility] [employer] Tester 10 mg Infiltration 5 mL [id number] TAMAR[employer]VANNESSA Kenalog 40 mg/mL suspension for injection Performing Provider: Sunil Hua MD Performing Location: [facility] Rheumatology-[facility] Administered by: Sunil Hua MD on 10/01/24 21:47 Dose Route Admin Location Dispensed Lot Number Expiration Date [facility] [employer] Tester 40 mg intrabursal 1 mL [id number] [employer] Assessment & Plan Assessment & Plan (1) Trochanteric bursitis of both hips: Comment: Uncontrolled pain L trochanteric bursa. R trochanteric bursa pain is controlled. Code(s): M70.61 - Trochanteric bursitis, right hip; M70.62 - Trochanteric bursitis, left hip Category: Medical Plan: Left trochanteric bursa injection was given today RTC 3 months (2) Osteoarthritis of left hip: Comment: on x-ray Code(s): M16.12 - Unilateral primary osteoarthritis, left hip Category: Medical Qualifiers: Osteoarthritis type: primary Qualified Code(s): M16.12 - Unilateral primary osteoarthritis, left hip Plan: PT ordered. He is currently participating in PT for shoulder strengthening. (3) Shoulder pain, left: Comment: Uncontrolled pain with shoulder abduction with limited full ROM. X-ray reveals calcific tendonitis with osteoarthritis of AC joint. Code(s): M25.512 - Pain in left shoulder Category: Medical Qualifiers: Chronicity: chronic Qualified Code(s): M25.512 - Pain in left shoulder; G89.29 - Other chronic pain Plan: Continue PT exercises to improve ROM (4) Erosive osteoarthritis of both hands: Comment: Pain is uncontrolled in DIPs. He has had benefit with using topical lidocaine more than diclofenac gel 1%. We discussed considering adding hydroxychloroquine to help reduce pain. He is currently on methotrexate and Remicade for sarcoidosis. We discussed the need of PCP prophylaxis if he chooses to be on hydroxychloroquine as then he would be on 3 immunosuppressive medications. We discussed side effect profile of hydroxychloroquine. At this time patient and his declined hydroxychloroquine. Patient and his had questions about CBD products. I recommended that CBD products can be used to control pain but to be aware of possible side effects in combination with his prescribed medications. Code(s): M15.4 - Erosive (osteo)arthritis Category: Medical Plan: Continue topical lidocaine OTC apply to affected area as needed for pain control Continue hand exercises to maintain ROM Continue paraffin wax bath Patient will try CBD products for pain reduction Orders: Orders AMB Joint Injection/Aspiration Today M70.61 - Trochanteric bursitis, right hip, M70.62 - Trochanteric bursitis, left hip Medications: New lidocaine (PF) 10 mg Infiltration ONCE 1 mL 0RF M70.61 - Trochanteric bursitis, right hip, M70.62 - Trochanteric bursitis, left hip Kenalog (triamcinolone acetonide) 40 mg intrabursal ONCE 1 mL 0RF NS M70.61 - Trochanteric bursitis, right hip, M70.62 - Trochanteric bursitis, left hip Coding Level of Care Code Est Pt Level 4 (92571) Complex EM visit Add On G2211 Diagnoses Trochanteric bursitis of both hips M70.61; M70.62 Primary osteoarthritis of left hip M16.12 Osteoarthritis type: primary Chronic left shoulder pain M25.512; G89.29 Chronicity: chronic Erosive osteoarthritis of both hands M15.4 CPT Codes Coding - 44483 Large joint: 09641 - Large joint ([id number])
== END 2024-10-01 14:02 | disposition home or self-care (01) ==
PROVIDERS: PCP Internal Medicine; Visit Provider Internal Medicine Rheumatology
DX: M70.61 Trochanteric bursitis, right hip (principal); M70.62 Trochanteric bursitis, left hip; M16.12 Unilateral primary osteoarthritis, left hip; M25.512 Pain in left shoulder; G89.29 Other chronic pain; M15.4 Erosive (osteo)arthritis
CPT/HCPCS: 20610; 99214

== ENCOUNTER → 2024-10-01 13:02 | Outpatient (BNVA) | payer MEDICARE, OTHER, SELFPAY | PROVIDERS: PCP Internal Medicine; Visit Provider Internal Medicine Rheumatology | DX: M70.62 Trochanteric bursitis, left hip (principal); M70.61 Trochanteric bursitis, right hip; M16.12 Unilateral primary osteoarthritis, left hip; M25.512 Pain in left shoulder; M15.4 Erosive (osteo)arthritis; G89.29 Other chronic pain | CPT/HCPCS: 20610; 99212; J2003; J3300 ==

== ENCOUNTER 2024-12-31 13:10 | Outpatient (AMB) | payer MEDICARE, OTHER, SELFPAY ==
--- NOTE | 2024-12-31 13:16 | MHC.OFFVIS ---
Vital Signs 12/31/24 13:23 Height 5 ft 10.5 in Weight 196 lb 10.437 oz BMI 27.8 BP 115/74 Blood Pressure Location Rt brachial Position Sitting Pulse 65 Pulse Source Pulse Oximeter Pulse Oximetry (%) 95 Oxygen Delivery Method Room Air Intake Visit Reasons: 3 months Intake Note: Patient presents for 3 months follow up. Allergies No Known Allergies Allergy (Verified 12/31/24 13:22) HPI HPI 3 months: Details: lost 50lbs with diet changes Increase back pain with right radiculopathy. He has been experiencing hand swelling. Right 5th finger is twisting. Pain from bilateral trochanteric bursitis has returned. [facility] Surgical History History of hip surgery History of back surgery Family History Mother No problems noted. Father No problems noted. Social History Alcohol intake: never Patient Tobacco Use Status: Never used Tobacco Physical Exam Vital Signs: Last Vital Signs Pulse 65 12/31/24 13:23 BP 115/74 12/31/24 13:23 Pulse Ox 95 12/31/24 13:23 Oxygen Delivery Method Room Air 12/31/24 13:23 BMI result Body Mass Index 27.8 Const Other: General: Comfortable CVS: RRR Respiratory: clear to auscultation bilaterally. Good respiratory effort Skin: No lesions seen MSK: Synovitis right wrist, right 5th, 2nd and 1st PIP, left 5th PIP and right 1st interphalangeal joint synovitis. Tender right wrist, right 3rd and 4th MCP, all PIP, bilateral elbows, and bilateral shoulders. Haberden's node are present on multiple DIPs with tenderness on palpation. tender to palpate left MTPs. R 3rd-4th hammertoes present. Bilateral trochanteric bursa tenderness found. Office Procedures AMB Joint Injection/Aspiration Joint Injection/Aspiration Details: Bilateral trochanteric bursa Prep: site was prepped using aseptic technique Injected into each site: 40 mg of, Kenalog, with 1 mL of and 1% plain lidocaine Procedure: The patient tolerated the procedure well. Postprocedure protocol was discussed with patient. Coding 65764 - Bilateral Large Joint Procedure code (CPT) selection complete AMB Joint Injection/Aspiration Coding 12191 - Bilateral Large Joint Procedure code (CPT) selection complete Office Meds lidocaine (PF) 10 mg/mL (1 %) injection solution Performing Provider: Sunil Hua MD Performing Location: [facility] [facility] Administered by: Sunil Hua MD on 12/31/24 21:11 Dose Route Admin Location Dispensed Lot Number Expiration Date [facility] [employer] 10 mg Infiltration 2 mL [id number] [employer] Kenalog 40 mg/mL suspension for injection Performing Provider: Sunil Hua MD Performing Location: [facility] [place] [facility] Administered by: Sunil Hua MD on 12/31/24 21:11 Dose Route Admin Location Dispensed Lot Number Expiration Date [facility] [employer] 40 mg intrabursal 1 mL [id number] [employer] lidocaine (PF) 10 mg/mL (1 %) injection solution Performing Provider: Sunil Hua MD Performing Location: [facility] [place] [facility] Administered by: Sunil Hua MD on 12/31/24 21:11 Dose Route Admin Location Dispensed Lot Number Expiration Date [facility] [employer] 10 mg Infiltration 2 mL [id number] [employer] Kenalog 40 mg/mL suspension for injection Performing Provider: Sunil Hua MD Performing Location: [facility] [facility] Administered by: Sunil Hua MD on 12/31/24 21:11 Dose Route Admin Location Dispensed Lot Number Expiration Date [facility] [employer] 40 mg intrabursal 1 mL [id number] [employer] Results Reviewed Results Reviewed: Ordering Physician: Sunil Hua MD Date of Service: 07/02/24 Procedure(s): XR hand LT 2V Accession Number(s): [id number] cc: CIRO PORTER MD; Sunil Hua MD~ EXAMINATION: XR SHOULDER, LEFT. XR HAND, LEFT. XR HIP, LEFT. CLINICAL INFORMATION: Left shoulder and left hip pain. Dorsal wrist and hand swelling COMPARISON: None. TECHNIQUE: 4 views of the left shoulder. AP and frog-lateral views of the left hip. 3 views of the left hand. FINDINGS: Left shoulder: No acute fracture or malalignment. Supraspinatus calcific tendinitis. Mild acromioclavicular osteoarthritis. Left hip: 3 cannulated screws traverse a presumed healed femoral neck fracture. There is chronic remodeling/deformity of the femoral head with bony protuberance/osteophyte at the lateral femoral head and neck junction, superolateral joint space narrowing and small marginal osteophyte of the superior acetabular rim. No acute abnormality. 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 Narrowing of the remainder of the interphalangeal joints. No active erosion or suspicious soft tissue calcification. No acute fracture or malalignment. XR/XR hand LT 2V IMPRESSION: LEFT SHOULDER: Supraspinatus calcific tendinitis. Mild acromioclavicular osteoarthritis. LEFT HIP: No acute abnormality. Chronic deformity of the left hip with mild degenerative changes as described. 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 No acute abnormality. Electronically signed by: Iftikhar Cunha MD 07/02/2024 06:31 PM [facility] Assessment & Plan Assessment & Plan (1) Sarcoid arthropathy: Comment: He has developed new polyarthritis concerning for sarcoid arthropathy. He agreed to short prednisone course to relieve pain and joint swelling. In the past he developed weight gain on long-term prednisone use for management of systemic sarcoidosis (pulmonary, diffuse LAD). We discussed optimizing methotrexate with changing it to subcutaneous injection for greater bioavailability to help reduce his steroid burden. Patient agrees with plan. Code(s): D86.86 - Sarcoid arthropathy Category: Medical Plan: I have ordered lab for workup of inflammatory arthritis Short course prednisone prescribed After lab results are back, I will schedule patient for nurse visit with his present for methotrexate subcutaneous injection. will be administrating MTX SC to patient. I will increase methotrexate subcu to 22.5 mg once weekly. Continue folic acid 1 mg daily Continue receiving infliximab infusions at [facility] prescribed by his pulmonologists (Dr. Bee [facility] and Dr. Leopoldo Loredo [facility]) Requesting last pulmonology note from Dr. Bee and Dr. Loredo RTC 1-2 months (2) Trochanteric bursitis of both hips: Comment: Uncontrolled pain in bilateral trochanteric bursas. Code(s): M70.61 - Trochanteric bursitis, right hip; M70.62 - Trochanteric bursitis, left hip Category: Medical Plan: Patient received cortisone injection to bilateral trochanteric bursas Orders: Orders Cyclic Citrullinated Peptide Today D86.86 - Sarcoid arthropathy Rheumatoid Factor Today D86.86 - Sarcoid arthropathy Hepatitis B,C Profile Today D86.86 - Sarcoid arthropathy AMB Joint Injection/Aspiration Today M70.61 - Trochanteric bursitis, right hip, M70.62 - Trochanteric bursitis, left hip Erythrocyte Sedimentation Rate Today D86.86 - Sarcoid arthropathy, Z79.899 - Other ocean transportation intermediary (current) drug therapy C Reactive Protein Today D86.86 - Sarcoid arthropathy, Z79.899 - Other long-term (current) drug therapy Alanine Aminotransferase Today D86.86 - Sarcoid arthropathy Aspartate Amino Transferase Today D86.86 - Sarcoid arthropathy Complete Blood Count Auto Diff Today D86.86 - Sarcoid arthropathy Creatinine Today D86.86 - Sarcoid arthropathy T Spot TB Today D86.86 - Sarcoid arthropathy AMB Joint Injection/Aspiration Today M70.61 - Trochanteric bursitis, right hip, M70.62 - Trochanteric bursitis, left hip Medications: New prednisone Take 2 tablets daily 1 week, 1 tablet daily 1 week then stop. Take prednisone with food. 5 mg PO DIRECTED 21 tabs 0RF Coding Level of Care Code Est Pt Level 4 (87626) Complex EM visit Add On G2211 Diagnoses Sarcoid arthropathy D86.86 Trochanteric bursitis of both hips M70.61; M70.62 CPT Codes Coding - 26029 - Bilateral Large Joint: 59698 - Bilateral Large Joint ([id number]) Coding - 78257 - Bilateral Large Joint: 95708 - Bilateral Large Joint ([id number]) Time Spent (min) 30
[2024-12-31 13:23] VITALS: BP 115/74; PULSE 65; O2SAT 95; BMI 27.8
--- OUTSIDE RECORDS SUMMARY | 2024-12-31 13:46 | XMS_ITS | Clinical Summary ---
Author Organization [facility] [address] [facility] Address [address] [place] [address] Phone Care Team Providers Care Sample Steamer Name Role Phone Lashonda Love MD Primary Care Provider Allergies No known active allergies Medications venlafaxine XR (EFFEXOR-XR) 37.5 mg 24 hr capsule 1 capsule (37.5 mg total). 5 Active venlafaxine XR (EFFEXOR-XR) 75 mg 24 hr capsule 1 capsule (75 mg total). Active tadalafiL (CIALIS) 10 mg tablet 1 tablet (10 mg total). 5 Active SUMAtriptan (IMITREX) 100 mg tablet 1 tablet (100 mg total). Active modafiniL (PROVIGIL) 200 mg tablet Take 2 tablets (400 mg total) by mouth 1 (one) time each day. Active metoprolol succinate (TOPROL-XL) 25 mg 24 hr tablet Take 1 tablet (25 mg total) by mouth 1 (one) time each day. Active metoclopramide (REGLAN) 5 mg tablet 1 tablet (5 mg total). 3 Active methotrexate 2.5 mg tablet 1 tablet (2.5 mg total) Active mesalamine (Canasa) 1,000 mg suppository 1 suppository (1,000 mg total). 6 Active LORazepam (ATIVAN) 1 mg tablet Take 1 tablet (1 mg total) by mouth at bedtime as needed for anxiety. Active loperamide (IMODIUM) 2 mg capsule Take 1 capsule (2 mg total) by mouth daily. 2 Active ipratropium (ATROVENT) 21 mcg (0.03 %) nasal spray 1 spray. Active inFLIXimab-abda (Renflexis) 100 mg injection Infuse 50 mL (500 mg total) into a venous catheter. 3 Active folic acid (FOLVITE) 1 mg tablet Take 1 tablet (1,000 mcg total) by mouth 1 (one) time each day. Active atorvastatin (LIPITOR) 20 mg tablet Take 1 tablet (20 mg total) by mouth 1 (one) time each day. Active acetaminophen (TYLENOL 8 HOUR) 650 mg 8 hr tablet Take 1 tablet (650 mg total) by mouth every 8 (eight) hours if needed for mild pain. Do not crush, chew, or split. Active lidocaine (XYLOCAINE) 2 % gel Insert into the urethra. Active Active Problems Problem Noted Date Diagnosed Date Anxiety Esophageal dysmotility Hip fx ([facility] V24, [facility] V28) OA (osteoarthritis) Sarcoidosis Ulcerative colitis, left sided ([facility] V24, [facility] V28) Assessment & Plan (11/13/2024 3:25 PM EDT): 49-year-old gentleman with left-sided ulcerative colitis diagnosed in 2019 presenting for follow-up. Overall he is doing very well compared to when he initially presented. We did review his last colonoscopy from July 2023 which was unremarkable grossly. As an aside, he does have a father with a diagnosis of colon cancer in the absence a history of IBD. At this time the patient appears to be again stable with the current medical regiment. Of note, this regimen is being directed by the patient's physician who addresses his sarcoidosis. 1. Continue infliximab infusions monthly as scheduled. 2. Continue methotrexate tablets as scheduled. 3. Mesalamine suppositories as needed. 4. Patient instructed to contact me should things progress. 5. Plan for routine follow-up at the end of 2024. 6. Given the negative colonoscopy in 2022, would likely put off repeat evaluation until 2027. 7. All patient and 's concerns were addressed and reviewed. Encounters Date Type Department Care Team Description 11/13/2024 2:40 PM EDT Office Visit Gastroenterology - [address] [id number] Jhonny Vicente MD Left sided ulcerative colitis without complication ([facility] V24, [facility] V28) (Primary Dx) from Last 3 Months Surgical History Surgery Date Site/Laterality Comments GASTROSCOPY 07/19/2023 - 08/18/2023 COLONOSCOPY 07/19/2023 - 08/18/2023 2 yrs BACK SURGERY Medical History Medical History Date Comments Sarcoidosis Ulcerative colitis, left sided ([facility] V24, [facility] V28) OA (osteoarthritis) Esophageal dysmotility Anxiety Hip fx ([facility] V24, [facility] V28) OA (osteoarthritis) Family History Medical History Relation Name Comments Colon cancer Father Relation Name Status Comments Father Social History Tobacco Use Types Packs/Day Years Used Date Smoking Tobacco: Never Tobacco Cessation:Counseling Given: Not Answered Alcohol Use Standard Drinks/Week Comments Not Currently 0 (1 standard drink = 0.6 oz pur e alcohol) Sex and Gender Information Value Date Recorded Sex Assigned at Not on file Legal Sex Male 10:40 AM EST Gender Identity Not on file Sexual Orientation Not on file Obstetrics History Last Filed Vital Signs Vital Sign Reading Time Taken Comments Blood Pressure - - Pulse - - Temperature - - Respiratory Rate - - Oxygen Saturation - - Inhaled Oxygen Concentration - - Weight 93 kg (205 lb) 11/13/2024 2:39 PM EDT Height 177.8 cm (5' 10 ) 11/13/2024 2:39 PM EDT Body Mass Index 29.41 11/13/2024 2:39 PM EDT Plan of Treatment Health Maintenance Due Date Last Done Comments Hepatitis B Vaccines (1 of 3 - 19+ 3-dose series) 1996 COVID-19 Vaccine ( season) 2024 08/17/2021, 11/18/2020, 10/26/2020 Cholesterol Screening (Lipid Panel) 09/17/2024 Colorectal Cancer Screening: Colonoscopy 09/17/2024 Depression Screening 09/17/2024 HIV Screening 09/17/2024 Hepatitis C Screening 09/17/2024 Medicare Annual Wellness Visit 09/17/2024 Social Influencers of Health Screening 09/17/2024 Hypertension/CHF/CAD Annual BMP Blood Test 11/11/2024 DTaP,Tdap,and Td Vaccines (3 - Td or Tdap) 03/24/2034 03/24/2024, 05/18/2011 Pneumococcal Vaccine: Pediatrics (0 to 5 Years) and At-Risk Patients (6 to 64 Years) Aged Out 07/13/2015 No longer eligible based on patient's age to complete this topic Influenza Vaccine Completed 04/08/2024, , 05/19/2022, Additional history exists HIB Vaccines Aged Out No longer eligi [...] age to complete this topic Meningococcal B Vaccine Aged Out No l onger eligible based on patient's age to complete this topic RSV Immunization Patients Under 20 months Aged Out No longer eligible based on patient's age to complete this topic Varicella Vaccines Aged Out No longer eligible based on patient's age to complete this topic Insurance [facility] [address] MEDICARE Care Teams Sample Steamer Relationship Specialty Start Date End Date Lashonda Love MD [address] [place] [address] PCP - General Internal Medicine 09/17/24
--- OUTSIDE RECORDS SUMMARY | 2024-12-31 13:46 | XMS_ITS | Continuity of Care Document ---
Author Organization [facility] Adult Address [address] [place] [phone]- Care Team Providers Care Uniform Room Attendant Name Role Phone Kate HARVEY, [place] Primary Care Physician Encounter [facility] Date(s): 11/27/24 - 12/27/[address] [address]- Encounter Type: Triage Allergies, Adverse Reactions, Alerts [...] Vaccine (oldterm) 06/15/09 Given 1Result Comment: [06/09/2018] [id number] 2Admin Note: [facility] 3Result Comment: [facility] [id number] Medications Ativan 1 mg oral tablet 1 tablet = 1 mg, By Mouth, Daily at bedtime, PRN as needed for anxiety, environmental health inspector checked, # 28 tablet, 0Refills, Maintenance, 09/16/24 3:58:00 PM EST, Tablet, [facility]/pharmacy #[id number], 179.3, cm, 09/16/24 14:52:00 EST, Height, 105.3, kg, 09/04/24 10:15:00 EST, Dry Weight Start Date: 09/16/24 Status: Ordered Quantity: 28.0 Unit: tablet Repeat number: 1 atorvastatin 20 mg oral tablet 1 tablet, By Mouth, Daily, # 90 tablet, 1 Refills, Maintenance, 08/24/24 1:22:00 PM EST, [id number], 183, cm, 08/07/24 18:58:00 EST, Height, 110.2, kg, 08/07/24 10:15:00 EST, Dry Weight Start Date: 08/24/24 Status: Ordered Quantity: 90.0 Unit: tablet Repeat number: 1 Canasa Pac 1000 mg rectal suppository 1 supp = 1,000 mg, Rectally, Daily at bedtime, 0 Refills, Maintenance, 04/06/16 1:04:48 PM EDT Start Date: 04/06/16 Status: Ordered Repeat number: 1 Cialis 10 mg oral tablet 1 tablet = 10 mg, By Mouth, Daily, 1 hour before sexual activity, # 30 tablet, 5 Refills, Maintenance, 09/16/24 3:52:00 PM EST, Tablet, [facility]/pharmacy #[id number], Partial fill upon patient request if the prescription is for a schedule II opioid drug., 179.3, cm, 09/16/24 14:52:00 EST, Height, 105.3, kg, 09/04/24 10:15:00 EST, Dry Weight Start Date: 09/16/24 Status: Ordered Quantity: 30.0 Unit: tablet Repeat number: 6 Indication: Male erectile dysfunction, unspecified folic acid 1 mg oral tablet 1, tablet, By Mouth, Daily, # 90 tablet, Refills 11, Tot. Refills 11, Maintenance, 12/09/23 9:51:00 AM EDT, Route to Pharmacy Electronically, [facility]/pharmacy #[id number], 183, cm, 11/28/23 8:35:00 EDT, Height,107.5, kg, 11/29/23 11:09:00 EDT, Dry Weight Start Date: 12/09/23 Status: Ordered Quantity: 90.0 Unit: tablet Repeat number: 12 ipratropium nasal 21 mcg/inh spray See Instructions, USE 1 SPRAY IN BOTH NOSTRILS DAILY AT BEDTIME,CAN BE USED UP TO 3 TIMES PER DAY IF NEEDED, # 90 Unknown, 5 Refills, Maintenance, 03/19/24 10:16:00 AM EDT, [facility]/pharmacy #[id number], 90, USE 1 SPRAY IN BOTH [...] ER 25 mg oral tablet, extended release 1, tablet, By Mouth, Daily, # 90 tablet, Refills 1, Maintenance, 10/22/24 10:09:00 AM EST, Route to Pharmacy Electronically, [id number], 183, cm, 10/02/24 12:39:00 EST, Height, 99.8, kg, 10/02/24 10:32:00 EST, Dry Weight Start Date: 10/22/24 Status: Ordered Quantity: 90.0 Unit: tablet Repeat number: 1 modafinil 200 mg oral tablet 2 tablet [...] 12:59:00 PM EDT, Route to Pharmacy Electronically, [facility], Partial fill upon patient request if [...] 37.5 mg, 1, capsule, By Mouth, Daily, TAKE TOGETHER WITH 75MG FOR TOTAL DAILY DOSE OF 112.5MG, # 90capsule, Refills 0, Tot. Refills 0, Maintenance, 10/23/24 9:57:00 AM EST, Route to Pharmacy Electronically, [facility]/pharmacy #[id number], Partial fill upon patient request if the prescription is for a schedule II opioid drug., 183, cm, 10/02/24 12:39:00 EST, Height, 99.8, kg, 10/02/24 10:32:00 EST, Dry Weight Start Date: 10/23/24 Status: Ordered Quantity: 90.0 Unit: capsule Repeat number: 1 venlafaxine 75 mg oral capsule, extended release 75 mg, 1, capsule, By Mouth, Daily, TAKE TOGETHER WITH 37.5MG FOR TOTAL DAILY DOSE OF 112.5MG, # 90capsule, Refills 0, Tot. Refills 0, Maintenance, 10/23/24 9:57:00 AM EST, Route to Pharmacy Electronically, [facility]/pharmacy #0957, Partial fill upon patient request if the prescription is for a schedule II opioid drug., 183, cm, 10/02/24 12:39:00 EST, Height, 99.8, kg, 10/02/24 10:32:00 EST, Dry Weight Start Date: 10/23/24 Status: Ordered Quantity: 90.0 Unit: capsule Repeat number: 1 Problem List [...] Active Migraines Confirmed Active Depression Confirmed Active EDDI (obstructive sleep apnea) Confirmed [...] Team Personnel Name: Marah Reyes RN Position: [facility] RN Member Role: Primary Care Nurse Name: Lashonda Love MD Position: [facility] Physician - Primary Care Member Role: PCP Address: [address] [place] [phone]- Telecom: Name: Gala Pat RN Position: [facility] AMB Nurse Member Role: Primary Care Nurse Name: Paco Carlos RN Position: [facility] RN Member Role: Primary Care Nurse Name: Deana Garcia Position: [facility] Rad Management Member Role: Primary Care Nurse Care Team Related Persons Name: CHELLE ORTIZ Insurance Providers Guarantor name: AISHA ORTIZ Health Plan Information #: 1 Payer: MEDICARE PART B OUTPT Member Number: NA Policy Number: NA Group Number: NA Health Plan Information #: 2 Payer: [facility] Member Number: NA Policy Number: NA Group Number: NA
--- OUTSIDE RECORDS SUMMARY | 2024-12-31 13:46 | XMS_ITS | Continuity of Care Document ---
Author Organization [facility] Adult Address [address] [place] [address]- Care Team Providers Care Radiology Resident Name Role Phone Kate HARVEY, [place] Primary Care Physician Encounter [facility] Date(s): 11/27/24 - 12/27/24 [facility] Adult [address] [place] [phone]- Encounter Type: Triage Allergies, Adverse Reactions, Alerts [...] Vaccine (oldterm) 06/15/09 Given 1Result Comment: [06/09/2018] [id number] 2Admin Note: [facility] 3Result Comment: [facility] [id number] Medications Ativan 1 mg oral tablet 1 tablet = 1 mg, By Mouth, Daily at bedtime, PRN as needed for anxiety, batchmaker checked, # 28 tablet, 0Refills, Maintenance, 09/16/24 3:58:00 PM EST, [facility]t, [facility], 179.3, cm, 09/16/24 14:52:00 EST, Height, 105.3, kg, 09/04/24 10:15:00 EST, Dry Weight Start Date: 09/16/24 Status: Ordered Quantity: 28.0 Unit: tablet Repeat number: 1 atorvastatin 20 mg oral tablet 1 tablet, By Mouth, Daily, # 90 tablet, 1 Refills, Maintenance, 08/24/24 1:22:00 PM EST, [facility], 183, cm, 08/07/24 18:58:00 EST, Height, 110.2, [...] Refills, Maintenance, 09/16/24 3:52:00 PM EST, Tablet, [facility]/pharmacy #0957, Partial fill upon patient request if [...] 9:51:00 AM EDT, Route to Pharmacy Electronically, [facility]/pharmacy #0957, 183, cm, 11/28/23 8:35:00 EDT, Height,107.5, kg, 11/29/23 11:09:00 EDT, Dry Weight Start Date: 12/09/23 Status: Ordered Quantity: 90.0 Unit: tablet Repeat number: 12 ipratropium nasal 21 mcg/inh spray See Instructions, USE 1 SPRAY IN BOTH NOSTRILS DAILY AT BEDTIME,CAN BE USED UP TO 3 TIMES PER DAY IF NEEDED, # 90 Unknown, 5 Refills, Maintenance, 03/19/24 10:16:00 AM EDT, [facility]/pharmacy #0957, 90, USE 1 SPRAY IN BOTH [...] 10:09:00 AM EST, Route to Pharmacy Electronically, [facility], 183, cm, 10/02/24 12:39:00 EST, Height, 99.8, [...] 12:59:00 PM EDT, Route to Pharmacy Electronically, [facility], Partial fill upon patient request if [...] 9:57:00 AM EST, Route to Pharmacy Electronically, [facility]/pharmacy #0957, Partial fill upon patient request if [...] 9:57:00 AM EST, Route to Pharmacy Electronically, [facility]/pharmacy #0957, Partial fill upon patient request if [...] Team Personnel Name: Marah Reyes RN Position: [facility] RN Member Role: Primary Care Nurse Name: Lashonda Love MD Position: [facility] Physician - Primary Care Member Role: PCP Address: [address] [place] [phone]- Telecom: Name: Gala Pat RN Position: [facility] AMB Nurse Member Role: Primary Care Nurse Name: Paco Carlos RN Position: [facility] RN Member Role: Primary Care Nurse Name: Deana Garcia Position: [facility] Rad Management Member Role: Primary Care Nurse Care Team Related Persons Name: CHELLE ORTIZ Insurance Providers Guarantor name: AISHA ORTIZ Health Plan Information #: 1 Payer: MEDICARE PART B OUTPT Member Number: NA Policy Number: NA Group Number: NA Health Plan Information #: 2 Payer: [facility] Member Number: NA Policy Number: NA Group Number: NA
== END 2024-12-31 14:12 | disposition home or self-care (01) ==
LOC: HO.RHES 13:10
PROVIDERS: PCP Internal Medicine; Visit Provider Internal Medicine Rheumatology
DX: D86.86 Sarcoid arthropathy (principal); M70.61 Trochanteric bursitis, right hip; M70.62 Trochanteric bursitis, left hip
CPT/HCPCS: 20610; 99214

== ENCOUNTER 2024-12-31 13:10 | Outpatient (REF) | payer MEDICARE, OTHER, SELFPAY ==
--- OUTSIDE RECORDS SUMMARY | 2024-12-31 14:58 | XMS_ITS | Clinical Summary ---
Author Organization [facility] [address] [facility] Address [address] [place] [address] Phone Care Team Providers Care Customer Development Manager Name Role Phone Lashonda Love MD Primary [...] Diagnosed Date Anxiety Esophageal dysmotility Hip fx ([facility] V24, [facility] V28) OA (osteoarthritis) Sarcoidosis Ulcerative colitis, left sided ([facility] V24, [facility] V28) Assessment & Plan (11/13/2024 3:25 [...] PM EDT Office Visit Gastroenterology - [address] [place] [phone] Jhonny Vicente MD Left sided ulcerative colitis without complication ([facility] V24, [facility] V28) (Primary Dx) from Last 3 Months Surgical History Surgery Date Site/Laterality Comments GASTROSCOPY 07/19/2023 - 08/18/2023 COLONOSCOPY 07/19/2023 - 08/18/2023 2 yrs BACK SURGERY Medical History Medical History Date Comments Sarcoidosis Ulcerative colitis, left sided ([facility] V24, [facility] V28) OA (osteoarthritis) Esophageal dysmotility Anxiety Hip fx ([facility] V24, [facility] V28) OA (osteoarthritis) Family History Medical [...] patient's age to complete this topic Insurance [facility] [id number] MEDICARE Care Teams Customer Development Manager Relationship Specialty Start Date End Date Lashonda Love MD [address] [place] [address] PCP - General Internal Medicine 09/17/24
[2024-12-31 17:38] LABS: MANUAL DIFF FLAG NO
[2024-12-31 17:54] LABS: Basophils Percent Auto 0.2 % (0-2); Eosinophils Absolute Auto 0.2 X10*3/uL (0.0-0.4); Eosinophils Percent Auto 2.6 % (0-4); Hematocrit 41.2 % (42.0-52.0); Hemoglobin 13.8 g/dl (14.0-18.0); Imm Gran Abs Auto 0.01 X10*3/uL (0.00-0.03); Imm Gran Pct Auto 0.2 % (0.0-0.4); Lymphocytes Absolute Auto 1.4 X10*3/uL (1.2-4.9); Mean Corpuscular HGB Conc 33.5 g/dl (31.0-36.0); Mean Corpuscular Hemoglobin 30.1 pg (27.0-33.0); Mean Platelet Volume 11.1 fL (9.4-12.4); Monocytes Absolute Auto 0.6 X10*3/uL (0.1-1.2); Platelet Count 234 X10*3/uL (160-400); Red Blood Count 4.58 X10*6/uL (4.60-5.80); Red Cell Distribution Width 13.4 % (11.0-16.0); White Blood Count 6.2 X10*3/uL (4.8-10.8)
[2024-12-31 18:00] LABS: Rheumatoid Factor < 13.0 IU/mL (<15.0)
[2024-12-31 18:06] LABS: Alanine Aminotransferase 25 U/L (0-40); Aspartate Amino Transferase 27 U/L (5-37); C Reactive Protein 0.42 mg/dL (< or = 0.50); Estimated Glomerular Filt Rate > 60
[2024-12-31 18:50] LABS: Erythrocyte Sedimentation Rate 10 MM/HR (0-15)
[2025-01-01 08:43] LABS: HBS Num1 1.18 mIU/mL (0-7.99); HBc Num1 0.07 S/CO (0.00-0.79); HBsAGNum1 0.44 S/CO (0.00-0.99); Hepatitis B Core Antibody Nonreactive (Nonreactive); Hepatitis B Surface Antigen Negative (Negative); ~HepC Num1 0.15 S/CO (0.00-0.79); ~Hepatitis B Surface Antibody NONREACTIVE (Nonreactive); ~Hepatitis C Antibody Nonreactive (Nonreactive)
[2025-01-04 04:39] LABS: TS Negative Control Passed; TS Panel A 2; TS Panel B 4; TS Positive Control Passed; TSpotTB Negative (Negative)
[2025-01-04 21:57] LABS: Cyclic Citrullinated Peptide <16 UNITS
== END 2024-12-31 13:11 | disposition home or self-care (01) ==
LOC: HO.HKASLDS 13:10
PROVIDERS: PCP Internal Medicine; Visit Provider Internal Medicine Rheumatology
DX: M70.61 Trochanteric bursitis, right hip (principal); M70.62 Trochanteric bursitis, left hip; D86.86 Sarcoid arthropathy; Z79.899 Other long term (current) drug therapy
CPT/HCPCS: 20610; 36415; 82565; 84450; 84460; 85025; 85652; 86140; 86200; 86431; 86481; 86704; 86706; 86803; 87340; 99212; J2003; J3300

== ENCOUNTER → 2025-01-26 14:27 | Outpatient (BNVA) | payer MEDICARE, OTHER, SELFPAY | PROVIDERS: PCP Internal Medicine; Visit Provider Internal Medicine Rheumatology ==

== ENCOUNTER → 2025-02-12 11:03 | Outpatient (BNVA) | payer MEDICARE, OTHER, SELFPAY | PROVIDERS: PCP Internal Medicine; Visit Provider Student in an Organized Health Care Education/Training Program | DX: Z13.89 Encounter for screening for other disorder (principal) ==

== ENCOUNTER 2025-03-03 13:06 | Outpatient (AMB) | payer MEDICARE, OTHER, SELFPAY ==
[2025-03-03 13:08] VITALS: BP 108/70; PULSE 55; O2SAT 100; BMI 27.1
--- NOTE | 2025-03-03 13:08 | MHC.OFFVIS ---
Vital Signs 03/03/25 13:08 Height 5 ft 10.5 in Weight 191 lb 8 oz BMI 27.1 BP 108/70 Blood Pressure Location Lt brachial Position Sitting Pulse 55 Pulse Source Pulse Oximeter Pulse Oximetry (%) 100 Oxygen Delivery Method Room Air Intake Visit Reasons: 1-2 months Intake Note: Patient presents for 3 months follow up. Accompanied by: Spouse Allergies No Known Allergies Allergy (Verified 03/03/25 13:11) HPI HPI 1-2 months: Details: Joint swelling has improved. He has had increased fatigue. No recent infections. [facility] Surgical History History of hip surgery History of back surgery Family History Mother No problems noted. Father No problems noted. Social History Alcohol intake: never Patient Tobacco Use Status: Never used Tobacco Physical Exam Vital Signs: Last Vital Signs Pulse 55 03/03/25 13:08 BP 108/70 03/03/25 13:08 Pulse Ox 100 03/03/25 13:08 Oxygen Delivery Method Room Air 03/03/25 13:08 BMI result Body Mass Index 27.1 Const Other: General: Comfortable CVS: RRR Respiratory: clear to auscultation bilaterally. Good respiratory effort Skin: No lesions seen MSK: Tender to palpate right MCPs, bilateral PIPs, left elbow, bilateral shoulders, synovitis right 5th PIP. Warm left wrist with tenderness on palpation. Haberden's node are present on multiple DIPs with tenderness on palpation. Tender bilateral ankles and MTPs. Left trochanteric bursa tenderness found. Assessment & Plan Assessment & Plan (1) Sarcoid arthropathy: Comment: Improved inflammatory arthritis with short course of prednisone. Methotrexate dose was increased and changed to subcutaneous injection for greater bio availability. He has had 3 doses of subcutaneous methotrexate injection. New inspiratory crackles heard on exam left mid lung field. He denies worsening respiratory symptoms. Rheumatology history: He developed sarcoid arthropathy 12/2024. Treated with prednisone and P.o. Methotrexate was changed to SC. In the past he developed weight gain on long-term prednisone use for management of systemic sarcoidosis (pulmonary, diffuse LAD). He is on infliximab infusions at [facility] prescribed by his pulmonologists (Dr. Cristal SALDIVAR and [facility]). Code(s): D86.86 - Sarcoid arthropathy Category: Medical Plan: Chest x-ray ordered ? Methotrexate induced pneumonitis versus alternative etiology Labs for drug monitoring on high-risk medication ordered Continue methotrexate 22.5 mg subcutaneous injection administered by Continue folic acid 1 mg daily Continue receiving infliximab infusions at [facility] prescribed by his pulmonologists (Dr. Cristal SALDIVAR and [facility]) Return to clinic in 1 month (2) Trochanteric bursitis of both hips: Comment: Recurrent. Improved. Patient received bilateral trochanteric bursa cortisone injections December 2024. Code(s): M70.61 - Trochanteric bursitis, right hip; M70.62 - Trochanteric bursitis, left hip Category: Medical Plan: Monitor clinically Return to clinic in 1 month for bilateral trochanteric bursa cortisone injections (3) Erosive osteoarthritis of both hands: Comment: Affecting DIPJs. Pain is controlled. Previously treated with intra-articular cortisone injections with temporary benefit, lidocaine topical. Code(s): M15.4 - Erosive (osteo)arthritis Category: Medical Plan: Monitor clinically Orders: Orders XR chest 2V Today D86.86 - Sarcoid arthropathy Coding Level of Care Code Est Pt Level 4 (27594) Complex EM visit Add On G2211 Diagnoses Sarcoid arthropathy D86.86 Trochanteric bursitis of both hips M70.61; M70.62 Erosive osteoarthritis of both hands M15.4
--- OUTSIDE RECORDS SUMMARY | 2025-03-03 13:57 | XMS_ITS | Clinical Summary ---
Author Organization [facility] [address] [facility] Address [address] [place] [address] Phone Care Team Providers Care Textile Colorist Dyer Name Role Phone Lashonda Love MD Primary [...] (500 mg total) into a venous catheter. Active folic acid (FOLVITE) 1 mg tablet [...] Diagnosed Date Anxiety Esophageal dysmotility Hip fx (CMS/HCC V24, CMS/HCC V28) OA (osteoarthritis) Sarcoidosis Ulcerative colitis, left sided (CMS/HCC V24, CMS /HCC V28) Assessment & Plan (11/13/2024 3:25 PM [...] and 's concerns were addressed and reviewed. Surgical History Surgery Date Site/Laterality Comments GASTROSCOPY 07/19/2023 - 08/18/2023 COLONOSCOPY 07/19/2023 - 08/18/2023 2 yrs BACK SURGERY Medical History Medical History Date Comments Sarcoidosis Ulcerative colitis, left sided (CMS/HCC V24, CMS /HCC V28) OA (osteoarthritis) Esophageal dysmotility Anxiety Hip fx ([facility] V24, [facility] V28) OA (osteoarthritis) Family History Medical History [...] - 19+ 3-dose series) 1996 COVID-19 Vaccine (2023- season) 2024 08/17/2021, 11/18/2020, 10/26/2020 Cholesterol Screening (Lipid Panel) 09/17/2024 Colorectal Cancer Screening: Colonoscopy 09/17/2024 Depression Screening 09/17/2024 HIV Screening 09/17/2024 Hepatitis C Screening 09/17/2024 Medicare Annual Wellness Visit 09/17/2024 Social Influencers of Health Screening 09/17/2024 Hypertension/CHF/CAD Annual BMP Blood Test 11/11/2024 Influenza Vaccine (#1) 2025 , 04/07/2023, 05/19/2022, Additional history exists DTaP,Tdap,and Td Vaccines (3 - Td or Tdap) 03/24/2034 03/24/2024, 05/18/2011 Pneumococcal Vaccine: Pediatrics (0 to 5 Years) and At-Risk Patients (6 to 49 Years) Aged Out 07/13/2015 No longer eligible based on patient's age to complete this topic HIB Vaccines Aged Out No longer eligi [...] patient's age to complete this topic [place] [id number] MEDICARE Care Teams Textile Colorist Dyer Relationship Specialty Start Date End Date Lashonda Love MD [address] [place] [phone] PCP - General Internal Medicine 09/17/24
== END 2025-03-03 14:09 | disposition home or self-care (01) ==
LOC: HO.RHES 13:06
PROVIDERS: PCP Internal Medicine; Visit Provider Internal Medicine Rheumatology
DX: D86.86 Sarcoid arthropathy (principal); M70.61 Trochanteric bursitis, right hip; M70.62 Trochanteric bursitis, left hip; M15.4 Erosive (osteo)arthritis
CPT/HCPCS: 99214; G2211

== ENCOUNTER 2025-03-03 13:06 | Outpatient (REF) | payer MEDICARE, OTHER, SELFPAY ==
--- NOTE | ~2025-03-03 | XR_ITS ---
EXAMINATION: XR CHEST CLINICAL INFORMATION: D86.86 - Sarcoid arthropathy COMPARISON: [July 02, 2024 TECHNIQUE: 2 views of the chest were obtained. FINDINGS: Coarse linear and reticular changes in the left mid to upper lung zone appears similar to the. There is a similar appearance radiating up from the right hilum. There is mild volume loss. There is fullness of the hilum, bilaterally. Heart size is within normal limits. Lungs clear otherwise. XR/XR chest 2V IMPRESSION: Reticular to fibrotic changes are present bilaterally, radiating up from bilateral candace, with evidence of traction. Electronically signed by: Rudy Garcia MD 03/03/2025 02:25 PM EDT RP
[2025-03-03 16:12] LABS: Baso%MD 0.2 %; Eos%MD 1.6 %; Hematocrit 44.7 % (42.0-52.0); Hemoglobin 14.8 g/dl (14.0-18.0); IG%MD 0.3 %; Lymph%MD 25.0 %; Mean Corpuscular HGB Conc 33.1 g/dl (31.0-36.0); Mean Corpuscular Hemoglobin 30.3 pg (27.0-33.0); Mean Corpuscular Volume 91.4 fL (80.0-98.0); Mono%MD 9.8 %; NRBC Abs Auto 0.000 X10*3/uL (0.0-0.012); NRBC Pct Auto 0.0 /100WBC (0.0-0.2); Neut%MD 63.1 %; Platelet Count 219 X10*3/uL (160-400); Red Blood Count 4.89 X10*6/uL (4.60-5.80); White Blood Count 6.1 X10*3/uL (4.8-10.8)
[2025-03-03 16:29] LABS: Alanine Aminotransferase 29 U/L (0-40); Aspartate Amino Transferase 24 U/L (5-37); Estimated Glomerular Filt Rate > 60
[2025-03-03 17:04] LABS: Band Neutrophils Percent 0 % (3-5); Basophils Abs Manual 0.1 X10*3/uL (0.0-0.2); Basophils Percent Manual 1 % (0-2); Eosinophils Absolute Manual 0.1 X10*3/uL (0.0-0.4); Eosinophils Percent Manual 2 % (0-4); Lymphocytes Absolute Manual 1.3 X10*3/uL (1.2-4.9); Lymphocytes Percent Manual 21 % (20-40); Monocytes Absolute Manual 0.3 X10*3/uL (0.1-1.2); Monocytes Percent Manual 5 % (2-11); Neutrophils Absolute Manual 4.3 X10*3/uL (2.0-8.3); Neutrophils Percent Manual 71 % (45-73)
[2025-03-03 17:05] LABS: Macrocytosis 1+ (5-14) /OIF
[2025-03-03 17:06] LABS: Large Platelet PRESENT; Ovalocytes 1+ (5-14) /OIF; RBC Morphology NOTED
== END 2025-03-03 13:07 | disposition home or self-care (01) ==
LOC: HO.HMGCX 13:06
PROVIDERS: PCP Internal Medicine; Visit Provider Internal Medicine Rheumatology
DX: D86.86 Sarcoid arthropathy (principal); M70.61 Trochanteric bursitis, right hip; M70.62 Trochanteric bursitis, left hip; M15.4 Erosive (osteo)arthritis; Z79.52 Long term (current) use of systemic steroids; Z79.899 Other long term (current) drug therapy; Z98.890 Other specified postprocedural states
CPT/HCPCS: 36415; 71046; 82565; 84450; 84460; 85007; 85027; 85652; 86140; 99212

== ENCOUNTER → 2025-03-03 14:12 | Outpatient (BNV) | payer MEDICARE, OTHER, SELFPAY | PROVIDERS: PCP Internal Medicine; Visit Provider Radiology Diagnostic Radiology | DX: J84.9 Interstitial pulmonary disease, unspecified (principal) | CPT/HCPCS: 71046 ==

== ENCOUNTER 2025-04-22 14:43 | Outpatient (AMB) | payer MEDICARE, OTHER, SELFPAY ==
--- OUTSIDE RECORDS SUMMARY | 2025-04-17 23:59 | XMS_ITS | Continuity of Care Document ---
Author Organization [facility] Address [address] [address]- Care Team Providers Care Reinspector Name Role Phone Kate HARVEY, Wallace Primary Care Physician Encounter [facility] [place] [facility] [place] Date(s): 03/18/25 - 04/17/25 [facility] [address] [address]- Encounter Type: Triage Allergies, Adverse Reactions, Alerts Substance Criticality Severity Reaction Reaction Severity Status Adhesive Bandage paper thin sensitive skin Active Immunizations Given and Recorded Vaccine Date Status Refusal Reason influenza virus vaccine, inactivated 04/09/25 Marty rded influenza virus vaccine, inactivated 04/08/24 Marty rded [...] Vaccine (oldterm) 06/15/09 Given 1Result Comment: [06/09/2018] [id number] 2Admin Note: [facility] 3Result Comment: [facility] [id number] Medications Ativan 1 mg oral tablet 1 tablet = 1 mg, By Mouth, Daily at bedtime, PRN as needed for anxiety, alligator trapper checked, # 28 tablet, 0Refills, Maintenance, 09/16/24 3:58:00 PM EST, Tablet, [id number], 179.3, cm, 09/16/24 14:52:00 EST, Height, 105.3, kg, 09/04/24 10:15:00 EST, Dry Weight Start Date: 09/16/24 Status: Ordered Medication Dispense Status: Completed Quantity: 28.0 Unit: tablet Total Allowed Fills: 1 Fills Dispensed: 0 atorvastatin 20 mg oral tablet 1 tablet, By Mouth, Daily, # 90 tablet, 1 Refills, Maintenance, 02/20/25 9:29:00 PM EDT, [id number], 183, cm, 01/22/25 12:46:00 EDT, Height, 87.1, kg, 02/18/25 10:12:00 EDT, Dry Weight Start Date: 02/20/25 Status: Ordered Medication Dispense Status: Completed Quantity: 90.0 Unit: tablet Total Allowed Fills: 1 Fills Dispensed: 0 Canasa Pac 1000 mg rectal suppository 1 supp = 1,000 mg, Rectally, Daily at bedtime, 0 Refills, Maintenance, 04/06/16 1:04:48 PM EDT Start Date: 04/06/16 Status: Ordered Medication Dispense Status: Completed Total Allowed Fills: 1 Fills Dispensed: 0 Cialis 10 mg oral tablet 1.5 tablet = 15 mg, By Mouth, Daily, PRN for erectile dysfunction, # 45 tablet, 1 Refills, Maintenance, 03/26/25 4:12:00 PM EDT, Tablet, [id number], Partial fill upon patient request if the prescription is for a schedule II opioid drug., 183, cm, 03/24/25 15:42:00 EDT, Height, 88.1, kg, 03/19/25 10:08:00 EDT, Dry Weight Start Date: 03/26/25 Status: Ordered Medication Dispense Status: Completed Quantity: 45.0 Unit: tablet Total Allowed Fills: 2 Fills Dispensed: 0 folic acid 1 mg oral tablet 1, tablet, By Mouth, Daily, # 90 tablet, Refills 11, Maintenance, 02/26/25 10:03:00 AM EDT, Route toPharmacy Electronically, [id number], 183, cm, 01/22/25 12:46:00 EDT, Height, 87.1, kg, 02/18/25 10:12:00 EDT, Dry Weight Start Date: 02/26/25 Status: Ordered Medication Dispense Status: Completed Quantity: 90.0 Unit: tablet Total Allowed Fills: 1 Fills Dispensed: 0 ipratropium nasal 21 mcg/inh spray See Instructions, USE 1 SPRAY IN BOTH NOSTRILS DAILY AT BEDTIME,CAN BE USED UP TO 3 TIMES PER DAY IF NEEDED, # 90 Unknown, 5 Refills, Maintenance, 03/19/24 10:16:00 AM EDT, [id number], 90, USE 1 SPRAY IN BOTH NOSTRILS DAILY AT BEDTIME,CAN BE USED UP TO 3 TIMES PER DAY IF NEEDED, 183, cm, 02/21/24 17:54:00 EDT, Height, 108.1, kg, 02/21/24 16:19:00 EDT, Dry Weight Start Date: 03/19/24 Status: Ordered Medication Dispense Status: Completed Quantity: 90.0 Unit: Unknown Total Allowed Fills: 6 Fills Dispensed: 0 lidocaine 0.5% topical gel 1 application, Topically, 3 times a day, # 120 Gm, 0 Refills, Maintenance, 07/29/24 4:10:00 PM EST,Gel, Partial fill upon patient request if the prescription is for a schedule II opioid drug. Start Date: 07/29/24 Status: Ordered Medication Dispense Status: Completed Quantity: 120.0 Unit: g Total Allowed Fills: 1 Fills Dispensed: 0 methotrexate 25 mg/mL injectable solution = 50 mg, INJECT 0.9 ML (22.5 MG) SUBCUTANEOUSLY ONCE A WEEK FOR 12 WEEKS SINGLE USE VIALS Start Date: 03/24/25 Status: Ordered Medication Dispense Status: Completed Total Allowed Fills: 1 Fills Dispensed: 0 metoclopramide 10 mg oral tablet, disintegrating 1 tablet = 10 mg, By Mouth, 3 times a day, PRN Headache, # 90 tablet, 0 Refills, Maintenance, 12/29/21 1:49:00 PM EDT, [facility] Tablet, Partial fill upon patient request if the prescription is for a schedule II opioid drug. Start Date: 12/29/21 Status: Ordered Medication Dispense Status: Completed Quantity: 90.0 Unit: tablet Total Allowed Fills: 1 Fills Dispensed: 0 modafinil 200 mg oral tablet 2 tablet = 400 mg, By Mouth, Daily in AM, # 30 tablet, 0 Refills, Maintenance, 03/22/23 2:27:00 PM EDT, Tablet, Partial fill upon patient request if the prescription is for a schedule II opioid drug. Start Date: 03/22/23 Status: Ordered Medication Dispense Status: Completed Quantity: 30.0 Unit: tablet Total Allowed Fills: 1 Fills Dispensed: 0 Renflexis 100 mg intravenous injection = 500 mg, IV Infusion, Every 28 days, # 5 each, 11 Refills, Maintenance, 04/13/24 5:31:00 PM EDT, dx: sarcoid D86. 0 Start Date: 04/13/24 Status: Ordered Medication Dispense Status: Completed Quantity: 5.0 Unit: each Total Allowed Fills: 12 Fills Dispensed: 0 SUMAtriptan 50 mg oral tablet 2 tablet = 100 mg, By Mouth, Once, PRN Pain , Mild, TAKE 1 TABLET BY MOUTH EVERY 2 HOURS NEEDED FOR MIGRAINE (NO MORE THAN 4 A WEEK) Start Date: 07/22/20 Status: Ordered Medication Dispense Status: Completed Total Allowed Fills: 1 Fills Dispensed: 0 Tylenol 8 HR Arthritis Pain 650 mg oral tablet, extended release 2 tablet = 1,300 mg, By Mouth, Every 8 hours, 0 Refills, Maintenance, 07/29/24 4:24:00 PM EST, Partial fill upon patient request if the prescription is for a schedule II opioid drug. Start Date: 07/29/24 Status: Ordered Medication Dispense Status: Completed Total Allowed Fills: 1 Fills Dispensed: 0 venlafaxine 37.5 mg oral capsule, extended release 37.5 mg, 1, capsule, By Mouth, Daily, TAKE TOGETHER WITH 75MG FOR TOTAL DAILY DOSE OF 112.5MG, # 90capsule, Refills 1, Tot. Refills 1, Maintenance, 03/24/25 4:07:00 PM EDT, Route to Pharmacy Electronically, [facility][id number], Partial fill upon patient request if the prescription is for a schedule II opioid drug., 183, cm, 03/24/25 15:42:00 EDT, Height, 88.1, kg, 03/19/25 10:08:00 EDT, Dry Weight Start Date: 03/24/25 Status: Ordered Medication Dispense Status: Completed Quantity: 90.0 Unit: capsule Total Allowed Fills: 2 Fills Dispensed: 0 venlafaxine 75 mg oral capsule, extended release 1 capsule, By Mouth, Daily, TAKE TOGETHER WITH 37.5MG FOR TOTAL DAILY DOSE OF 112.5MG, # 90 capsule, 1 Refills, Maintenance, 03/09/25 7:50:00 PM EDT, [id number], 183, cm, 01/22/25 12:46:00 EDT, Height, 87.1, kg, 02/18/25 10:12:00 EDT, Dry Weight Start Date: 03/09/25 Status: Ordered Medication Dispense Status: Completed Quantity: 90.0 Unit: capsule Total Allowed Fills: 1 Fills Dispensed: 0 Problem List Condition Confirmation Course Effective Dates [...] Active Osteoarthritis of multiple joints Confirmed Active Chronic pain of multiple joints Confirmed Active Post-nasal drip Confirmed Active Restless legs Confirmed Active Sarcoidosis Confirmed Active Social History Social History Type Response Smoking Status Former smoker, quit more than 30 days ago; Type: Cigarettes; Number of years: 10; entered on: 07/22/20 Sex Sex Representation Male (finding) Patient Care team information Care Team Personnel Name: Ruthie Forbes RN Position: [facility] Nurse Member Role: Primary Care Nurse Name: Marah Reyes RN Position: [facility] RN Member Role: Primary Care Nurse Name: Lashonda Love MD Position: [facility] Physician - Primary Care Member Role: PCP Address: [address] [place] [phone]- Telecom: Name: Gala Pat RN Position: [facility] Nurse Member Role: Primary Care Nurse Name: Paco Carlos RN Position: [facility] RN Member Role: Primary Care Nurse Name: Deana Garcia Position: [facility] Rad Management Member Role: Primary Care Nurse Care Team Related Persons Name: CHELLE ORTIZ Insurance Providers Guarantor name: AISHA ORTIZ Health Plan Information #: 1 Payer: MEDICARE B Payer Identifier: DEE Member Number: [id number] Group Number: [id number] Subscriber Identifier: NA Relationship to Subscriber: self Coverage Type: NA Coverage Verification Date: Telecom: NA Address: NA Health Plan Information #: 2 Payer: [employer] PPO Payer Identifier: NA Member Number: [id number] Group Number: [id number] Subscriber Identifier: NA Relationship to Subscriber: self Coverage Type: PRIVATE HEALTH INSURANCE Coverage Verification Date: Telecom: Address:
--- NOTE | 2025-04-22 14:48 | MHC.OFFVIS ---
Vital Signs 04/22/25 14:49 Height 10 ft 0.5 in Weight 190 lb 14.725 oz BMI 9.2 BP 112/70 Blood Pressure Location Rt brachial Position Sitting Pulse 74 Pulse Source Pulse Oximeter Pulse Oximetry (%) 100 Oxygen Delivery Method Room Air Intake Visit Reasons: bilateral trochanteric bursa injections Intake Note: Patient presents today for trochanteric bursa injection bilateral Accompanied by: Self / Same As Patient Allergies No Known Allergies Allergy (Verified 04/22/25 14:51) HPI HPI bilateral trochanteric bursa injections: Details: He is having difficulty sleeping at night. He only had 2 hours of sleep due to bilateral hip pain. Denies having groin pain. He has not started methotrexate 25 mg once weekly. [facility] Surgical History History of hip surgery History of back surgery Family History Mother No problems noted. Father No problems noted. Social History Alcohol intake: never Patient Tobacco Use Status: Never used Tobacco Physical Exam Vital Signs: Last Vital Signs Pulse 74 04/22/25 14:49 BP 112/70 04/22/25 14:49 Pulse Ox 100 04/22/25 14:49 Oxygen Delivery Method Room Air 04/22/25 14:49 BMI result Body Mass Index 9.2 Const Other: General: Comfortable CVS: RRR Respiratory: clear to auscultation bilaterally. Good respiratory effort Skin: No lesions seen MSK: Tender to palpate bilateral MCPs, PIPs, DIPs, left elbow, bilateral shoulders, synovitis bilateral 5th PIP. Warm left wrist with tenderness on palpation. Haberden's node are present on multiple DIPs with tenderness on palpation. Tender bilateral knees, ankles and MTPs. Bilateral trochanteric bursa tenderness found. Office Procedures AMB Joint Injection/Aspiration Joint Injection/Aspiration Details: Bilateral trochanteric bursa Prep: site was prepped using aseptic technique Injected into each site: 40 mg of, Kenalog, with 1 mL of and 1% plain lidocaine Procedure: Informed verbal consent was obtained. The patient tolerated the procedure well. Postprocedure protocol was discussed with patient. Coding 13595 - Bilateral Large Joint Procedure code (CPT) selection complete AMB Joint Injection/Aspiration Coding - Bilateral Large Joint Procedure code (CPT) selection complete AMB Joint Injection/Aspiration Joint Injection/Aspiration Procedure: The patient tolerated the procedure well Coding Details: Left hip Prep: site was prepped using aseptic technique Injected: 40 mg of, Kenalog, with 1 mL of and 1% plain lidocaine Procedure:? Informed verbal consent was obtained.? The patient tolerated the procedure well.? Postprocedure protocol was discussed with patient. - Large joint Procedure code (CPT) selection complete AMB Joint Injection/Aspiration Coding Details: Right Hip Prep: site was prepped using aseptic technique Injected: 40 mg of, Kenalog, with 1 mL of and 1% plain lidocaine Procedure:? Informed verbal consent was obtained.? The patient tolerated the procedure well.? Postprocedure protocol was discussed with patient. - Large joint Procedure code (CPT) selection complete Office Meds lidocaine (PF) 10 mg/mL (1 %) injection solution Performing Provider: Sunil Hua MD Performing Location: [facility] Documented (not given) by: Sunil Hua MD on 04/22/25 14:54 Dose Route Admin Location Dispensed Lot Number Expiration Date [facility] Student Activities Director 10 mg Infiltration mL Total Dispensed Waste n/a n/a Kenalog 40 mg/mL suspension for injection Performing Provider: Sunil Hua MD Performing Location: [facility] Documented (not given) by: Sunil Hua MD on 04/22/25 14:54 Dose Route Admin Location Dispensed Lot Number Expiration Date [facility] Student Activities Director 40 mg intrabursal mL Total Dispensed Waste n/a n/a lidocaine (PF) 10 mg/mL (1 %) injection solution Performing Provider: Sunil Hua MD Performing Location: [facility] Administered by: Sunil Hua MD on 04/22/25 14:54 Dose Route Admin Location Dispensed Lot Number Expiration Date [facility] Student Activities Director 10 mg Infiltration 2 mL [id number] 11/16/26 69244-522-78 [facility] Total Dispensed Waste 2 mL 50 % Kenalog 40 mg/mL suspension for injection Performing Provider: Sunil Hua MD Performing Location: [facility] Administered by: Sunil Hua MD on 04/22/25 14:54 Dose Route Admin Location Dispensed Lot Number Expiration Date [facility] Student Activities Director 40 mg intrabursal 1 mL [id number] 01/16/27 [address]-1 [employer] Total Dispensed Waste 1 mL 0 % lidocaine (PF) 10 mg/mL (1 %) injection solution Performing Provider: Sunil Hua MD Performing Location: [facility] Administered by: Tyler Holt RN on 04/22/25 14:43 Dose Route Admin Location Dispensed Lot Number Expiration Date [place] Student Activities Director 1 mL Infiltration 2 mL [id number] 11/16/26 14967-501-95 [employer] Total Dispensed Waste 2 mL 50 % Kenalog 40 mg/mL suspension for injection Performing Provider: Sunil Hua MD Performing Location: [facility] Administered by: Tyler Holt RN on 04/22/25 14:43 Dose Route Admin Location Dispensed Lot Number Expiration Date [facility] Student Activities Director 40 mg intrabursal 1 mL [id number] [address]-1 [employer] Total Dispensed Waste 1 mL 0 % lidocaine (PF) 10 mg/mL (1 %) injection solution Performing Provider: Sunil Hua MD Performing Location: [facility] Administered by: Tyler Holt RN on 04/22/25 14:43 Dose Route Admin Location Dispensed Lot Number Expiration Date [place] Student Activities Director 1 mL Infiltration 2 mL [id number] 11/16/26 30013-647-12 [employer] Total Dispensed Waste 2 mL 50 % Kenalog 40 mg/mL suspension for injection Performing Provider: Sunil Hua MD Performing Location: [facility] Administered by: Tyler Holt RN on 04/22/25 14:43 Dose Route Admin Location Dispensed Lot Number Expiration Date [facility] Student Activities Director 40 mg intrabursal 1 mL [id number] 03/18/26 [address]-1 [employer] Total Dispensed Waste 1 mL 0 % Assessment & Plan Assessment & Plan (1) Trochanteric bursitis of both hips: Comment: Recurrent. Patient received bilateral trochanteric bursa cortisone injections December 2024. Code(s): M70.61 - Trochanteric bursitis, right hip; M70.62 - Trochanteric bursitis, left hip Category: Medical Plan: Patient received bilateral trochanteric bursa cortisone injection this visit Return to clinic in 3 months (2) Sarcoid arthropathy: Comment: Improved inflammatory arthritis with short course of prednisone. He continues to have polyarthritis with stiffness lasting all day. I spoke with pulmonologists Dr. Cristal SALDIVAR in regards to patient's clinical situation yesterday. He is agreeable to increase infliximab to optimize his immunosuppressive regimen to better control sarcoid arthropathy. We discussed risks of immunosuppressive therapy including increase infection wrist. Rheumatology history: He developed sarcoid arthropathy 12/2024. Treated with prednisone and P.o. Methotrexate was changed to SC. In the past he developed weight gain on long-term prednisone use for management of systemic sarcoidosis (pulmonary, diffuse LAD). He is on infliximab infusions at [facility] prescribed by his pulmonologists (Dr. Cristal SALDIVAR and Dr. Leopoldo Loredo [facility]). Chest x-ray unchanged June 2024: reticular to fibrotic changes are present bilaterally, radiating up from bilateral candace, with evidence of traction. Code(s): D86.86 - Sarcoid arthropathy Category: Medical Plan: Labs for drug monitoring on high-risk medication ordered -requisition given to patient to have done with labs ordered by PCP He will start higher dose of methotrexate 25 mg subcutaneous injection administered by this week Infliximab we will be increased from 5 milligram/kilogram every 28 days to 7 milligram/kilogram. Dr. Bee will work on updating PA. Continue folic acid 1 mg daily Return to clinic in 3 months (3) Erosive osteoarthritis of both hands: Comment: Affecting DIPJs. Pain is uncontrolled. Previously treated with intra-articular cortisone injections with temporary benefit, lidocaine topical. Code(s): M15.4 - Erosive (osteo)arthritis Category: Medical Plan: Monitor clinically Orders: Orders AMB Joint Injection/Aspiration 04/22/25 M70.61 - Trochanteric bursitis, right hip, M70.62 - Trochanteric bursitis, left hip AMB Joint Injection/Aspiration 04/22/25 M70.61 - Trochanteric bursitis, right hip, M70.62 - Trochanteric bursitis, left hip Complete Blood Count Auto Diff 04/22/25 Z79.899 - Other superintendent container terminal (current) drug therapy Aspartate Amino Transferase 04/22/25 Z79.899 - Other superintendent container terminal (current) drug therapy Erythrocyte Sedimentation Rate 04/22/25 Z79.899 - Other superintendent container terminal (current) drug therapy AMB Joint Injection/Aspiration 04/22/25 M70.61 - Trochanteric bursitis, right hip, M70.62 - Trochanteric bursitis, left hip AMB Joint Injection/Aspiration 04/22/25 M70.61 - Trochanteric bursitis, right hip, M70.62 - Trochanteric bursitis, left hip Alanine Aminotransferase 04/22/25 Z79.899 - Other senior living (current) drug therapy Creatinine 04/22/25 Z79.899 - Other superintendent container terminal (current) drug therapy C Reactive Protein 04/22/25 Z79.899 - Other senior living (current) drug therapy Coding Level of Care Code Est Pt Level 4 (55029) Complex EM visit Add On G2211 Diagnoses Trochanteric bursitis of both hips M70.61; M70.62 Sarcoid arthropathy D86.86 Erosive osteoarthritis of both hands M15.4 CPT Codes Coding - 25096 - Bilateral Large Joint: 82119 - Bilateral Large Joint ([id number]) Coding - 80850 - Bilateral Large Joint: 29565 - Bilateral Large Joint ([id number]) Coding - 57928 Large joint: 14023 - Large joint ([id number]) Coding - 31692 Large joint: 18467 - Large joint ([id number])
[2025-04-22 14:49] VITALS: BP 112/70; PULSE 74; O2SAT 100
--- OUTSIDE RECORDS SUMMARY | 2025-04-22 15:55 | XMS_ITS | Clinical Summary ---
Author Organization [facility] [address] [facility] Address [address] [place] [address] Phone Care Team Providers Care Rn Community Name Role Phone Lashonda Love MD Primary [...] OA (osteoarthritis) Esophageal dysmotility Anxiety Hip fx ([facility] V24, [facility] V28) OA (osteoarthritis) Family History [...] Vaccine (2023- season) 2024 08/17/2021, 11/18/2020, 10/26/2020 Depression Screening 08/19/2024 Cholesterol Screening (Lipid Panel) 09/17/2024 Colorectal Cancer Screening: Colonoscopy 09/17/2024 HIV Screening 09/17/2024 Hepatitis C Screening [...] patient's age to complete this topic Insurance [place] [id number] MEDICARE Care Teams Rn Community Relationship Specialty Start Date End Date Lashonda Love MD [address] [place] [phone] PCP - General Internal Medicine 09/17/24
== END 2025-04-22 15:24 | disposition home or self-care (01) ==
LOC: HO.RHES 14:44
PROVIDERS: PCP Internal Medicine; Visit Provider Internal Medicine Rheumatology
DX: D86.86 Sarcoid arthropathy (principal); M70.61 Trochanteric bursitis, right hip; M70.62 Trochanteric bursitis, left hip; M15.4 Erosive (osteo)arthritis
CPT/HCPCS: 20610; 99214

== ENCOUNTER → 2025-04-22 14:43 | Outpatient (BNVA) | payer MEDICARE, OTHER, SELFPAY | PROVIDERS: PCP Internal Medicine; Visit Provider Internal Medicine Rheumatology | DX: M70.61 Trochanteric bursitis, right hip (principal); M70.62 Trochanteric bursitis, left hip | CPT/HCPCS: 20610; 99212; J2003; J3301 ==

== ENCOUNTER 2025-08-05 14:50 | Outpatient (AMB) | payer MEDICARE, OTHER, SELFPAY ==
[2025-08-05 14:59] VITALS: BP 120/70; PULSE 73; O2SAT 100
--- NOTE | 2025-08-05 14:59 | A.OFFVIS_ITS ---
Vital Signs 08/05/25 14:59 Height 10 ft 5 in Weight 195 lb 15.855 oz BMI 8.8 BP 120/70 Blood Pressure Location Lt brachial Position Sitting Pulse 73 Pulse Source Pulse Oximeter Pulse Oximetry (%) 100 Oxygen Delivery Method Room Air Intake Visit Reasons: 3 Months Intake Note: Patient presents today for trochanteric bursa injection bilateral Accompanied by: Self / Same As Patient Allergies No Known Allergies Allergy (Verified 08/05/25 15:00) HPI HPI 3 Months: Details: He starts experiencing hip bursa pain in 4 weeks, which progresses at 2 months in 10 days this time to the put regained sleep on his sides. He is having difficulty with his hands. He is unable to make a full spearer. Morning stiffness is lasting all day. He has not noted any change in his joint pain with increasing infliximab dose. Left shoulder pain started a few weeks ago. No triggering event. He is having difficulty with movement in his left shoulder. It hurts to sleep on it. [facility] Surgical History History of hip surgery History of back surgery Family History Mother No problems noted. Father No problems noted. Social History Alcohol intake: never Patient Tobacco Use Status: Never used Tobacco Physical Exam Vital Signs: Last Vital Signs Pulse 73 08/05/25 14:59 BP 120/70 08/05/25 14:59 Pulse Ox 100 08/05/25 14:59 Oxygen Delivery Method Room Air 08/05/25 14:59 BMI result Body Mass Index 8.8 Const Other: General: Comfortable CVS: RRR Respiratory: clear to auscultation bilaterally. Good respiratory effort Skin: No lesions seen MSK: Tender to palpate left shoulder. He has left shoulder abduction 120 degrees. Haberden's node are present on multiple DIPs. He is unable to make a full fist. Bilateral trochanteric bursa tenderness found. Office Procedures AMB Joint Injection/Aspiration Joint Injection/Aspiration Details: Left shoulder joint Prep: site was prepped using aseptic technique Injected: 40 mg of, Kenalog, with 1 mL of and 1% plain lidocaine Procedure: Informed verbal consent was obtained. The patient tolerated the procedure well. Postprocedure protocol was discussed with patient. Coding 30972 - Large joint Procedure code (CPT) selection complete AMB Joint Injection/Aspiration Joint Injection/Aspiration Details: Left trochanteric bursa Prep: site was prepped using aseptic technique Injected: 40 mg of, Kenalog, with 1 mL of and 1% plain lidocaine Procedure: Informed verbal consent was obtained. The patient tolerated the procedure well. Postprocedure protocol was discussed with patient. Primary Site: Left Hip Coding 67312 - Large joint Procedure code (CPT) selection complete Office Meds lidocaine (PF) 10 mg/mL (1 %) injection solution Performing Provider: Sunil Hua MD Performing Location: [facility] Administered by: Sunil Hua MD on 08/05/25 15:26 Dose Route Admin Location Dispensed Lot Number Expiration Date [facility] Digital Service [employer] 1 mL Infiltration left shoulder 2 mL [id number] 10/16/28 50289-949-10 [employer] Total Dispensed Waste 2 mL 50 % Kenalog 40 mg/mL suspension for injection Performing Provider: Sunil Hua MD Performing Location: [facility] Administered by: Sunil Hua MD on 08/05/25 15:26 Dose Route Admin Location Dispensed Lot Number Expiration Date [facility] Digital Service Engineer 40 mg intrabursal left shoulder 1 mL [id number] 02/15/27 [address]1967-6 [employer] Total Dispensed Waste 1 mL 0 % lidocaine (PF) 10 mg/mL (1 %) injection solution Performing Provider: Sunil Hua MD Performing Location: [facility] Administered by: Sunil Hua MD on 08/05/25 15:26 Dose Route Admin Location Dispensed Lot Number Expiration Date [facility] Digital Service Engineer 1 mL Infiltration hip left 2 mL [id number] 10/16/28 85242-123-63 [employer] Total Dispensed Waste 2 mL 50 % Kenalog 40 mg/mL suspension for injection Performing Provider: Sunil Hua MD Performing Location: [facility] Administered by: Sunil Hua MD on 08/05/25 15:26 Dose Route Admin Location Dispensed Lot Number Expiration Date [facility] Digital Service Engineer 40 mg intrabursal hip left 1 mL [id number] 02/15/27 Total Dispensed Waste 1 mL 0 % Assessment & Plan Assessment & Plan (1) Trochanteric bursitis of both hips: Comment: Recurrent. Cortisone injections lasting about 2 months Code(s): M70.61 - Trochanteric bursitis, right hip; M70.62 - Trochanteric bursitis, left hip Category: Medical Plan: Patient received left trochanteric bursa cortisone injection this visit Return to clinic in 1 month for right trochanteric bursa injection (2) Sarcoid arthropathy: Comment: He continues to have polyarthritis with stiffness lasting all day despite change in infliximab dose. He has mild transaminitis on recent labs. Rheumatology history: He developed sarcoid arthropathy 12/2024. Treated with prednisone and P.o. Methotrexate was changed to SC. In the past he developed weight gain on long-term prednisone use for management of systemic sarcoidosis (pulmonary, diffuse LAD). He is on infliximab infusions at [facility] prescribed by his pulmonologists (Dr. Cristal SALDIVAR and Dr. Leopoldo Loredo [facility]). Chest x-ray unchanged June 2024: reticular to fibrotic changes are present bilaterally, radiating up from bilateral candace, with evidence of traction. Code(s): D86.86 - Sarcoid arthropathy Category: Medical Plan: Labs for drug monitoring on high-risk medication ordered with repeat LFTs Continue folic acid 1 mg daily Continue methotrexate 25 mg subcutaneous injection weekly administered by this week. After lab results are reviewed, I will instruct on next steps with methotrexate dosing Continue Infliximab 7 milligram/kilogram every 28 days. Consider increasing to 10 milligram/kilogram every 28 days if he does not have relief after tomorrow's infusion Return to clinic in 1 month (3) Erosive osteoarthritis of both hands: Comment: Affecting DIPJs. Pain is uncontrolled. Previously treated with intra-articular cortisone injections with temporary benefit, lidocaine topical. Code(s): M15.4 - Erosive (osteo)arthritis Category: Medical Plan: Continue home exercise program learned from OT Continue paraffin wax bath He will restart hand gripping exercises with a ball (4) Tendinopathy of left rotator cuff: Comment: Suspected with mild AC joint arthritis contributing to pain and limitation range of motion. We discussed conservative management including physical therapy. He request cortisone injection. Code(s): M67.912 - Unspecified disorder of synovium and tendon, left shoulder Category: Medical Plan: Patient received cortisone injection to left shoulder Return to clinic in 3 months Orders: Orders AMB Joint Injection/Aspiration Today M70.61 - Trochanteric bursitis, right hip, M70.62 - Trochanteric bursitis, left hip AMB Joint Injection/Aspiration Today M70.61 - Trochanteric bursitis, right hip, M70.62 - Trochanteric bursitis, left hip Coding Level of Care Code Est Pt Level 4 (98592) Add On Problem Visit Only Diagnoses Trochanteric bursitis of both hips M70.61; M70.62 Sarcoid arthropathy D86.86 Erosive osteoarthritis of both hands M15.4 Tendinopathy of left rotator cuff M67.912 CPT Codes Coding - 51622 Large joint: 64866 - Large joint ([id number]) Coding - 01326 Large joint: 14648 - Large joint ([id number])
--- OUTSIDE RECORDS SUMMARY | 2025-08-05 18:55 | XMS_ITS | Clinical Summary ---
Author Organization [facility] [address] [facility] Address [address] [place] [address] Phone Care Team Providers Care Impregnator Operator Name Role Phone Lashonda Love MD Primary [...] Diagnosed Date Anxiety Esophageal dysmotility Hip fx OA (osteoarthritis) Sarcoidosis Ulcerative colitis, left sided Assessment & Plan (11/13/2024 3:25 PM EDT): [...] OA (osteoarthritis) Esophageal dysmotility Anxiety Hip fx (CMS/HCC V24, CMS/HCC V28) OA (osteoarthritis) Family History Medical History [...] on file Sexual Orientation Not on file Last Filed Vital Signs Vital Sign Reading Time Taken Comments Blood Pressure - - Pulse - - Temperature - - Respiratory Rate - - Oxygen Saturation - - Inhaled Oxygen Concentration - - Weight 93 kg (205 lb) 11/13/2024 2:39 PM EDT Height 177.8 cm (5' 10 ) 11/13/2024 2:39 PM EDT Body Mass Index 29.41 11/13/2024 2:39 PM EDT Plan of Treatment Upcoming Encounters Date Type Department Care Team (Late st Contact Info) Description 04/22/2026 1:20 PM EDT Office Visit Gastroenterology - [address] [facility] [address] [place] [phone] Penelope High NP [address] [facility] [address] [place] [address] Health Maintenance Due Date Last Done Comments Colorectal Cancer Screening: Colonoscopy 1977 Drug Screen 1977 Non-Opioid Controlled Substance Agreement 1977 Hepatitis B Vaccines (1 of 3 - 19+ 3-dose series) 1996 Depression Screening 08/19/2024 Cholesterol Screening (Lipid Panel) 09/17/2024 HIV Screening 09/17/2024 Hepatitis C Screening 09/17/2024 Medicare Annual Wellness Visit 09/17/2024 Social Influencers of Health Screening 09/17/2024 Hypertension/CHF/CAD Annual BMP Blood Test 11/11/2024 COVID-19 Vaccine ( season) 2025 08/17/2021, 11/18/2020, 10/26/2020 Influenza Vaccine (#1) 2025 , 04/07/2023, 05/19/2022, Additional history exists DTaP,Tdap,and Td Vaccines (3 - Td or Tdap) 03/24/2034 03/24/2024, 05/18/2011 RSV Immunization Adult Patients (1 - 1-dose 75+ series) 2052 Pneumococcal Vaccine: Pediatrics (0 to 5 Years) [...] patient's age to complete this topic Insurance [facility] [place] [id number] MEDICARE Care Teams Impregnator Operator Relationship Specialty Start Date End Date [place] [phone] PCP - General Internal Medicine 09/17/24
== END 2025-08-05 15:40 | disposition home or self-care (01) ==
LOC: HO.RHES 14:50
PROVIDERS: PCP Internal Medicine; Visit Provider Internal Medicine Rheumatology
DX: M70.61 Trochanteric bursitis, right hip (principal); M70.62 Trochanteric bursitis, left hip; M67.912 Unspecified disorder of synovium and tendon, left shoulder; D86.86 Sarcoid arthropathy; M15.4 Erosive (osteo)arthritis; M25.512 Pain in left shoulder; M25.552 Pain in left hip
CPT/HCPCS: 20610; 99214

== ENCOUNTER 2025-08-05 14:50 | Outpatient (REF) | payer MEDICARE, OTHER, SELFPAY ==
[2025-08-05 18:01] LABS: MANUAL DIFF FLAG NO
[2025-08-05 18:04] LABS: Hematocrit 44.4 % (42.0-52.0); Hemoglobin 14.8 g/dl (14.0-18.0); Imm Gran Abs Auto 0.04 X10*3/uL (0.00-0.03); Imm Gran Pct Auto 0.6 % (0.0-0.4); Lymphocytes Absolute Auto 1.6 X10*3/uL (1.2-4.9); Mean Corpuscular HGB Conc 33.3 g/dl (31.0-36.0); Mean Corpuscular Hemoglobin 29.9 pg (27.0-33.0); Mean Corpuscular Volume 89.7 fL (80.0-98.0); NRBC Abs Auto 0.000 X10*3/uL (0.0-0.012); NRBC Pct Auto 0.0 /100WBC (0.0-0.2); Platelet Count 245 X10*3/uL (160-400); Red Blood Count 4.95 X10*6/uL (4.60-5.80); White Blood Count 7.0 X10*3/uL (4.8-10.8)
[2025-08-05 18:29] LABS: Alanine Aminotransferase 29 U/L (0-40); Albumin Level 4.5 g/dL (3.5-5.0); Alkaline Phosphatase 60 U/L (39-117); Anion Gap 11 (12-20); Aspartate Amino Transferase 26 U/L (5-37); Blood Urea Nitrogen 12 mg/dL (9-16); Calcium 9.7 mg/dL (8.4-10.2); Carbon Dioxide 27 mmol/L (22-29); Chloride 103 mmol/L (96-108); Estimated Glomerular Filt Rate > 60; Potassium 4.2 mmol/L (3.3-5.1); Sodium 137 mmol/L (135-145); Total Protein 7.4 g/dL (6.5-8.0)
== END 2025-08-05 14:51 | disposition home or self-care (01) ==
LOC: HO.HKASLDS 14:50
PROVIDERS: PCP Internal Medicine; Visit Provider Internal Medicine Rheumatology
DX: M70.61 Trochanteric bursitis, right hip (principal); D86.86 Sarcoid arthropathy; M67.912 Unspecified disorder of synovium and tendon, left shoulder; Z51.81 Encounter for therapeutic drug level monitoring; Z79.631 Long term (current) use of antimetabolite agent; M15.4 Erosive (osteo)arthritis
CPT/HCPCS: 20610; 36415; 80053; 85025; 85652; 86140; 99212; J2003; J3301